=== PATIENT | male | born 1960 | race Caucasian/White ===

== ENCOUNTER → 2020-11-07 08:52 | Outpatient (BNVA) | payer BC, SELFPAY | PROVIDERS: PCP Internal Medicine; Referring Provider Internal Medicine; Visit Provider Urology | DX: Z76.89 Persons encountering health services in other specified circumstances (principal) ==

== ENCOUNTER → 2021-11-30 13:07 | Outpatient (BNVA) | payer BC, SELFPAY | PROVIDERS: PCP Internal Medicine; Visit Provider Urology ==

== ENCOUNTER → 2022-11-29 14:26 | Outpatient (BNVA) | payer BC, SELFPAY | PROVIDERS: PCP Internal Medicine; Visit Provider Urology | DX: N20.0 Calculus of kidney (principal); N32.0 Bladder-neck obstruction | CPT/HCPCS: 51798 ==

== ENCOUNTER 2024-03-12 09:01 | Outpatient (AMB) | payer BC, SELFPAY ==
--- NOTE | 2024-03-12 09:11 | MHC.OFFVIS ---
Intake Visit Reasons: 1Y PSA(set)Confirmed Intake Note: Patient is Present for Follow Up Urology Medication: Terazosin, Oxybutynin Antibiotic Allergies: Amoxicillin Blood Thinners: None PVR: 0 Allergies amoxicillin [Augmentin] Allergy (Unknown, Verified 11/29/22 15:27) Unknown clavulanic acid [Augmentin] Allergy (Unknown, Verified 11/29/22 15:27) Unknown Medication List - Last Reconciled 03/12/24 by Shaan Mei MD levothyroxine 75 mcg PO DAILY metformin 500 mg PO DAILY oxybutynin chloride ER 10 mg PO DAILY 90 days terazosin 5 mg PO DAILY 90 days HPI Comments Details: Juan is a pleasant male. He is a patient of Dr. Banks. He seen for the following urologic conditions - lower urinary tract symptoms - nephrolithiasis Yearly follow-up PVR 0 cc Effective emptying Continue good response to combination oxybutynin for bladder urge and terazosin for bladder emptying Has lost 100 lb and significantly increased diabetic control Lower Urinary Tract Symptoms: Happy with current medications Combination therapy oxybutynin terazosin Has enough medication Current visit is for further evaluation of, lower urinary tract symptoms, predominate irritative symptoms. Current treatment includes medication, alpha meg, anti-muscarinic, oxybuytinin 10mg. Prostate Symptom Score Mild (0-8), Bother 2. Symptoms include frequency, straining, nocturia (>2), and are stable. Prior Prostate Score mild. PSA 10/03 0.2 - 09/08 T 698 [facility] 75 08/10 0.2. Prostate volume < 30 gm. Associated conditions CAD No CVA No diabetes Yes Testing at next visit will include Prostate Symptom Score, uroflow, bladder scan. Treatment plan Oxybutynin 10 mg ER, terazosin 5 mg . Nephrolithiasis/Urolithiasis: Here for 12 month follow-up Ultrasound discussed Has cyst on right kidney with question of small stone They are here for further evaluation of nephrolithiasis. Associated symptoms include Fever No Nausea No Chills No Hematuria No The patient previously had kidney stones whose composition w unknown. Prior treatment(s) include observation. Prior imaging includes 09/11 , a renal ultrasound, , bilaterally, no evidence of hydronephrosis, showing no evidence of stones. - 09/12 renal ultrasound. Cysts on right side, question of small stones - 11/21 renal ultrasound bilateral cysts but no stones Review of Systems Const Denies chills and Denies fever(s) Card Reports no additional complaints and Denies syncope Resp Denies cough GI Denies abdominal pain and Denies heartburn Reports as per HPI and Denies change in libido Neuro Denies syncope Psych Denies change in libido Endo Denies change in libido Physical Exam Const General: cooperative, healthy appearing, comfortable and no acute distress Orientation/consciousness: patient oriented x3 HEENT Face and sinus: Yes normal facial exam Mouth: moist mucous membranes Neck Neck: Yes normal visual inspection, Yes full ROM and Yes trachea midline Chest Chest palpation & inspection: normal inspection of the chest Resp Effort & Inspection: normal respiratory effort, able to speak in complete sentences and no respiratory distress GI Inspection: Yes normal to inspection Back/Spine/Pelvis Cervical Spine: normal cervical lordosis Thoracic/Lumbar Spine: thoracic and lumbar spine normal to inspection Skin General skin exam: no rashes or lesions noted Neuro General: patient oriented x3, gait normal, tone normal and moves all extremities Extrem General: Yes normal to inspection and Yes capillary refill normal Office Procedures Post Void Residual Post Residual Void Post Void Residual (PVR): 0 [id number] Void Residual by ultrasound Assessment & Plan Assessment & Plan (1) Bladder outlet obstruction: Code(s): N32.0 - Bladder-neck obstruction Category: Medical (2) Nocturia associated with benign prostatic hyperplasia: Code(s): N40.1 - Benign prostatic hyperplasia with lower urinary tract symptoms; R35.1 - Nocturia Category: Medical Plan Twelve month follow-up PSA and PVR Orders: Orders AMB Post Void Residual by ultrasound Today N40.1 - Benign prostatic hyperplasia with lower urinary tract symptoms, R35.1 - Nocturia Prostate Specific Antigen 364 Days N32.0 - Bladder-neck obstruction Medications: Refilled terazosin 5 mg PO DAILY 90 days 90 caps 3RF N32.0 - Bladder-neck obstruction oxybutynin chloride ER 10 mg PO DAILY 90 days 90 tabs 3RF N32.0 - Bladder-neck obstruction Patient Instructions: Imaging studies, laboratory and physical exam results were discussed and reviewed in detail. No major barriers to patient understanding were identified. An opportunity to ask questions regarding the treatment plan was provided. All questions were answered. The patient expressed understanding and agreement with the above treatment plan. The patient is aware they should contact our office by phone for worsening of their current condition or the appearance of new urologic symptoms. Compliance is encouraged with any medications and followup testing that is ordered. It is a privilege to participate in the urologic care of your patient. If you have any questions or concerns regarding treatment for the above conditions, or other urologic issues, please do not hesitate to contact me. The office telephone contact is [phone]. This note is constructed using voice recognition software. While every effort has been made to ensure accuracy content publisher errors may have been included. Yours sincerely, Dr Shaan Mei MD, [facility] - Urology Providers of Expert, Compassionate Care for the Genitourinary System
== END 2024-03-12 09:34 | disposition home or self-care (01) ==
PROVIDERS: PCP Internal Medicine; Visit Provider Urology
DX: N32.0 Bladder-neck obstruction (principal); N40.1 Benign prostatic hyperplasia with lower urinary tract symptoms; R35.1 Nocturia
CPT/HCPCS: 99213

== ENCOUNTER → 2024-03-12 09:01 | Outpatient (BNVA) | payer BC, SELFPAY | PROVIDERS: PCP Internal Medicine; Visit Provider Urology | DX: N40.1 Benign prostatic hyperplasia with lower urinary tract symptoms (principal); R35.1 Nocturia; N32.0 Bladder-neck obstruction; Z79.899 Other long term (current) drug therapy | CPT/HCPCS: 51798 ==

== ENCOUNTER 2025-02-24 07:58 | Outpatient (REF) | payer MEDICARE, OTHER, SELFPAY ==
--- OUTSIDE RECORDS SUMMARY | 2025-02-24 08:02 | XMS_ITS ---
Author Organization [facility] Address [address] [place] [address] Care Team Providers Care New Client Banking Services Clerk Name Role Phone LONI BREAUX [phone] REASON FOR VISIT refill MEDICATIONS Medication SIG (Take, Route, Frequency, Duration) Notes Start Date End Date Status Lancets 30G - one lancet for pen i njector in vitro twice daily for DX E 11.9 for 90 days 02/08/2025 Active Encounters Encounter Location Date Provider Diagnosis [facility] [address] [place] [address] 02/08/2025 TOMMYCECI BREAUX PLAN OF TREATMENT Medication Medication Name Sig Start Date Stop Date Notes Lancets 30G - one lancet for pen i njector in vitro twice daily for DX E 11.9 for 90 days 02/08/2025 Next Appt Details Provider Name:GONZALEZ LEWIS, 04/04/2025 08:30:00 AM, [address] [place], [address], Progress Notes * Juan IZAGUIRREDOB:1960 (64 yo M)Acc No.[id number]:02/08/2025 Patient:??Juan IZAGUIRRE :1960?Age:64 Y?Sex:Darcy bose Address:[address] [place] [address] [place] [address] * Refills?? Start Lancets 30G Miscellaneous, -, 200 Each, one lancet for pen injector in vitro twice daily for DX E 11.9, 90 days, Refills=1 * true * Date:??
--- OUTSIDE RECORDS SUMMARY | 2025-02-24 08:02 | XMS_ITS ---
Author Organization [facility] Address [address] [place] [address] Care Team Providers Care Loading Unit Operator Seating Name Role Phone LONI BREAUX Unavailable [phone] LEWISBARRYY Unavailable [phone] REASON FOR VISIT glucose testing MEDICATIONS Medication SIG (Take, Route, Fr equency, Duration) Notes Start Date End Date Status Contour Test - once In Vitro dx e11 .6 contour next 1 twice a day for 90 days 08/28/2021 Active Encounters Encounter Location Date Provider Diagnosis [facility] [address] [place] [address] 01/25/2025 GONZALEZ LEWIS PLAN OF TREATMENT Medication Medication Name Sig Start Date Stop Date Notes Contour Test - once In Vitro dx e11 .6 contour next 1 twice a day for 90 days 08/28/2021 Next Appt Details Provider Name:GONZALEZ LEWIS, 04/04/2025 08:30:00 AM, [address] [place], [address], Progress Notes * Juan IZAGUIRREDOB:1960 (64 yo M)Acc No.[id number]:01/25/2025 Patient:??Juan IZAGUIRRE :1960?Age:64 Y?Sex:Darcy bose Address:[address] [place] [address] [place] [address] * Refills?? Refill Contour Test Strip, -, In Vitro dx e11.6 contour next 1, 180, once, twice a day, 90 days, Refills=0 * true * Date:??
--- OUTSIDE RECORDS SUMMARY | 2025-02-24 08:02 | XMS_ITS | Clinical Summary ---
Author Organization [facility] Address [address] [place] [address] Care Team Providers Care Endoscopy Support Specialist Name Role Phone Tyshawn Banks MD Primary Care Provider [phone] Surgical History Surgery Date Site/Laterality Comments HIP ARTHROPLASTY 03/2017 Left PROCEDURE: HISTORICAL HIP REPLACEMENT; COMMENT: Dr. Joshi ANKLE SURGERY Right PROCEDURE: HISTORICAL ANKLE SURGERY; COMMENT: due fx had some bone fragments removed - age 16 TONSILLECTOMY PROCEDURE: HISTORICAL TONSILLECTOMY Medical History Medical History Date Comments Benign enlargement of prostate 11/20/2016 D X:Benign enlargement of prostate; COMMENT: urology Dr. Nj Diabetes mellitus type 2, uncomplicated 05/22/2017 DX:Diabetes mellitus type 2, uncomplicated (HCC) Fatty liver 05/22/2017 DX:Fatty liver History of total hip replacement 05/22/2017 DX:History of total hip replacement Hypertension 05/22/2017 DX:Hypertension Hypothyroidism 05/22/2017 DX:Hypothyroidis m Insomnia 11/03/2015 DX:Insomnia Internal hemorrhoids 02/23/2013 DX:Internal hemorrhoids History of nephrolithiasis DX:Hi story of nephrolithiasis; COMMENT: Urology Dr. Nj Family History Medical History Relation Name Comments No Known Problems Father Other cancer Mother Relation Name Status Comments Father Mother Social History Tobacco Use Types Packs/Day Years Used Date Smoking Tobacco: Never Smokeless Tobacco: Never Alcohol Use Standard Drinks/Week Comments Yes 0 (1 standard drink = 0.6 oz pur e alcohol) Sex and Gender Information Value Date Recorded Sex Assigned at Not on file Legal Sex Male 10:17 PM EST Gender Identity Not on file Sexual Orientation Not on file Obstetrics History Plan of Treatment Health Maintenance Due Date Last Done Comments Diabetes: Annual GFR (Glomer ular Filtration Rate) 1959 Diabetes: Annual Foot Exam 1969 Diabetes: Annual Retina Eye Exam 1969 DTaP,Tdap,and Td Vaccines (1 - Tdap) 1978 Hepatitis A Vaccines (1 of 2 - Risk 2-dose series) 1978 Pneumococcal Vaccine: 50+ Ye ars (1 of 1 - PCV) 2009 Zoster Vaccines (1 of 2) 2009 Hepatitis B Vaccines (1 of 3 - Risk 3-dose series) 2019 RSV Immunization Adult Patie nts (1 - Risk 60-74 years 1-dose series) 2019 Abdominal Aortic Aneurysm (A AA) Screen 10/26/2022 Cholesterol Screening (Lipid Panel) 10/26/2022 Colorectal Cancer Screening: Colonoscopy 10/26/2022 Depression Screening 10/26/2022 Hepatitis C Screening 10/26/2022 Social Influencers of Health Screening 10/26/2022 Diabetes: Annual Urine Albumin-Creatinine Ratio (uACR) 11/09/2022 Diabetes: Blood Sugar Contro l Test (HGBA1C) 11/09/2022 Hypertension/CHF/CAD Annual BMP Blood Test 11/09/2022 COVID-19 Vaccine ( - 2023-2 5 season) 2024 Influenza Vaccine (#1) 2024 Falls Risk Assessment 2024 HIB Vaccines Aged Out No longer eligi ble based on patient's age to complete this topic HPV Vaccines Aged Out No longer eligi ble based on patient's age to complete this topic IPV Vaccines Aged Out No longer eligi ble based on patient's age to complete this topic MMR Vaccines Aged Out No longer eligi ble based on patient's age to complete this topic Meningococcal ACWY Vaccine Aged Out N o longer eligible based on patient's age to complete this topic Meningococcal B Vacine Aged Out No lo nger eligible based on patient's age to complete this topic Pneumococcal Vaccine: Pediat rics (0 to 5 Years) and At-Risk Patients (6 to 64 Years) Aged Out No longer eligible b ased on patient's age to complete this topic RSV Immunization Patients Un maria c 20 months Aged Out No longer eligible b ased on patient's age to complete this topic Varicella Vaccines Aged Out No longer eligible based on patient's age to complete this topic Care Teams Endoscopy Support Specialist Relationship Specialty Start Date End Date Tyshawn Banks MD [facility] - General 11/21/22
--- OUTSIDE RECORDS SUMMARY | 2025-02-24 08:02 | XMS_ITS ---
Author Organization [facility] Address [address] [place] [address] Care Team Providers Care Manager Clinical Applications Name Role Phone LONI BREAUX Unavailable [phone] LEWIS, GONZALEZ Unavailable [phone] REASON FOR VISIT Wrong pharmacy MEDICATIONS Medication SIG (Take, Route, Fr equency, Duration) Notes Start Date End Date Status Contour Test - once In Vitro dx e11 .6 contour next 1 twice a day for 90 days 08/28/2021 Active Encounters Encounter Location Date Provider Diagnosis [address] [place] [phone] 01/25/2025 GONZALEZ LEWIS PLAN OF TREATMENT Medication Medication Name Sig Start Date Stop Date Notes Contour Test - once In Vitro dx e11 .6 contour next 1 twice a day for 90 days 08/28/2021 Next Appt Details Provider Name:GONZALEZ LEWIS, 04/04/2025 08:30:00 AM, [address] [place], [address], Progress Notes * Juan IZAGUIRREDOB:1960 (64 yo M)Acc No.[id number]:01/25/2025 Patient:??Juan IZAGUIRRE :1960?Age:64 Y?Sex:Darcy bose Address:[address] [place] [address] [place] [address] * Refills?? Refill Contour Test Strip, -, In Vitro dx e11.6 contour next 1, 180, once, twice a day, 90 days, Refills=0 * true * Date:??
[2025-02-24 09:48] LABS: Prostate Specific Antigen 0.65 ng/mL (<0.05-4.0)
== END 2025-02-24 07:59 | disposition home or self-care (01) ==
LOC: HO.10HDL 07:58
PROVIDERS: Visit Provider Urology
DX: N32.0 Bladder-neck obstruction (principal); Z12.5 Encounter for screening for malignant neoplasm of prostate
CPT/HCPCS: 36415; 84153

== ENCOUNTER 2025-03-11 09:11 | Outpatient (AMB) | payer MEDICARE, OTHER, SELFPAY ==
--- NOTE | 2025-03-11 09:21 | MHC.OFFVIS ---
Intake Visit Reasons: 1y/PSA/PVR Intake Note: Pt presents to the office today for a 1 year follow up/PSA/PVR PVR:0ml Allergies amoxicillin [Augmentin] Allergy (Unknown, Verified 03/11/25 09:28) Unknown clavulanic acid [Augmentin] Allergy (Unknown, Verified 03/11/25 09:28) Unknown HPI Comments Details: Juan is a pleasant male. He is a patient of Dr. Banks. He seen for the following urologic conditions - lower urinary tract symptoms - nephrolithiasis Yearly follow-up Effective emptying with PVR 0, PSA 0.65 Continue good response to combination oxybutynin for bladder urge and terazosin for bladder emptying - refills provided Has lost 100 lb and significantly increased diabetic control Lower Urinary Tract Symptoms: Happy with current medications Combination therapy oxybutynin terazosin Has enough medication Current visit is for further evaluation of, lower urinary tract symptoms, predominate irritative symptoms. Current treatment includes medication, alpha meg, anti-muscarinic, oxybuytinin 10mg. Prostate Symptom Score Mild (0-8), Bother 2. Symptoms include frequency, straining, nocturia (>2), and are stable. Prior Prostate Score mild. PSA 10/03 0.2 - 09/08 T 698 [facility] 75 08/10 0.2, 03/18 0.65 Prostate volume < 30 gm. Associated conditions CAD No CVA No diabetes Yes Testing at next visit will include Prostate Symptom Score, uroflow, bladder scan. Treatment plan Oxybutynin 10 mg ER, terazosin 5 mg . Nephrolithiasis/Urolithiasis: Here for 12 month follow-up Ultrasound discussed Has cyst on right kidney with question of small stone They are here for further evaluation of nephrolithiasis. Associated symptoms include Fever No Nausea No Chills No Hematuria No The patient previously had kidney stones whose composition w unknown. Prior treatment(s) include observation. Prior imaging includes 09/11 , a renal ultrasound, , bilaterally, no evidence of hydronephrosis, showing no evidence of stones. - 09/12 renal ultrasound. Cysts on right side, question of small stones - 10/14 renal ultrasound bilateral cysts but no stones Review of Systems Const Denies chills and Denies fever(s) Card Reports no additional complaints and Denies syncope Resp Denies cough GI Denies abdominal pain and Denies heartburn Reports as per HPI and Denies change in libido Neuro Denies syncope Psych Denies change in libido Endo Denies change in libido Physical Exam Const General: cooperative, healthy appearing, comfortable and no acute distress Orientation/consciousness: patient oriented x3 HEENT Face and sinus: Yes normal facial exam Mouth: moist mucous membranes Neck Neck: Yes normal visual inspection, Yes full ROM and Yes trachea midline Chest Chest palpation & inspection: normal inspection of the chest Resp Effort & Inspection: normal respiratory effort, able to speak in complete sentences and no respiratory distress GI Inspection: Yes normal to inspection Back/Spine/Pelvis Cervical Spine: normal cervical lordosis Thoracic/Lumbar Spine: thoracic and lumbar spine normal to inspection Skin General skin exam: no rashes or lesions noted Neuro General: patient oriented x3, gait normal, tone normal and moves all extremities Extrem General: Yes normal to inspection and Yes capillary refill normal Office Procedures Post Void Residual Post Residual Void Post Void Residual (PVR): 0 [id number] Void Residual by ultrasound Assessment & Plan Assessment & Plan (1) Diabetes: Code(s): E11.9 - Type 2 diabetes mellitus without complications Category: Medical (2) Nocturia associated with benign prostatic hyperplasia: Code(s): N40.1 - Benign prostatic hyperplasia with lower urinary tract symptoms; R35.1 - Nocturia Category: Medical (3) Bladder outlet obstruction: Code(s): N32.0 - Bladder-neck obstruction Category: Medical Plan Twelve month follow-up Orders: Orders AMB Post Void Residual by ultrasound Today N40.1 - Benign prostatic hyperplasia with lower urinary tract symptoms, R35.1 - Nocturia Testosterone, Total 12 Months E11.9 - Type 2 diabetes mellitus without complications Patient Instructions: This note is constructed using voice recognition software. While every effort has been made to ensure accuracy organic section technical lead errors may have been included. Imaging studies, laboratory and physical exam results were discussed and reviewed in detail. No major barriers to patient understanding were identified. An opportunity to ask questions regarding the treatment plan was provided. All questions were answered. The patient expressed understanding and agreement with the above treatment plan. The patient is aware they should contact our office by phone for worsening of their current condition or the appearance of new urologic symptoms. Compliance is encouraged with any medications and followup testing that is ordered. It is a privilege to participate in the urologic care of your patient. If you have any questions or concerns regarding treatment for the above conditions, or other urologic issues, please do not hesitate to contact me. The office telephone contact is [phone]. Sincerely, Dr Shaan Mei MD, [facility] - Urology Compassionate Specialist Care for the Genitourinary System Coding Level of Care Code Est Pt Level 4 (95771) Complex EM visit Add On G2211 Diagnoses Diabetes E11.9 Nocturia associated with benign prostatic hyperplasia N40.1; R35.1 Bladder outlet obstruction N32.0 CPT Codes Post Residual Void - PVR CPT Code: 62984-Ahto Void Residual by ultrasound ([id number])
--- OUTSIDE RECORDS SUMMARY | 2025-03-11 09:38 | XMS_ITS ---
Author Organization [facility] Address [address] [place] [address] Care Team Providers Care Apartment Community Manager Name Role Phone LONI BREAUX [phone] REASON FOR VISIT refill MEDICATIONS Medication SIG (Take, Route, Frequency, Duration) Notes Start Date End Date Status Lancets 30G - one lancet for pen i njector in vitro twice daily for DX E 11.9 for 90 days 02/08/2025 Active Encounters Encounter Location Date Provider Diagnosis [facility] [address] [place] [address] 02/08/2025 TOMMYCECI BREAUX PLAN OF TREATMENT Medication Medication Name Sig Start Date Stop Date Notes Lancets 30G - one lancet for pen i njector in vitro twice daily for DX E 11.9 for 90 days 02/08/2025 Next Appt Details Provider Name:GONZALEZ LEWIS, 04/04/2025 08:30:00 AM, [address] [place], [address], Progress Notes * Juan IZAGUIRREDOB:1960 (64 yo M)Acc No.[id number]:02/08/2025 Patient:??Juan IZAGUIRRE :1960?Age:64 Y?Sex:Darcy bose Address:[address] [place] [address] [place] [address] * Refills?? Start Lancets 30G Miscellaneous, -, 200 Each, one lancet for pen injector in vitro twice daily for DX E 11.9, 90 days, Refills=1 * true * Date:??
--- OUTSIDE RECORDS SUMMARY | 2025-03-11 09:38 | XMS_ITS ---
Author Organization [facility] Address [address] [place] [address] Care Team Providers Care [employer] Superintendent [employer] Name Role Phone LONI BREAUX Unavailable [phone] LEWIS, GONZALEZ Unavailable [phone] REASON FOR VISIT Wrong pharmacy MEDICATIONS Medication SIG (Take, Route, Fr equency, Duration) Notes Start Date End Date Status Contour Test - once In Vitro dx e11 .6 contour next 1 twice a day for 90 days 08/28/2021 Active Encounters Encounter Location Date Provider Diagnosis [address] [place] [address] 01/25/2025 GONZALEZ LEWIS PLAN OF TREATMENT Medication Medication Name Sig Start Date Stop Date Notes Contour Test - once In Vitro dx e11 .6 contour next 1 twice a day for 90 days 08/28/2021 Next Appt Details Provider Name:GONZALEZ LEWIS, 04/04/2025 08:30:00 AM, [address] [place], [address], Progress Notes * Juan IZAGUIRREDOB:1960 (64 yo M)Acc No.[id number]:01/25/2025 Patient:??Juan IZAGUIRRE :1960?Age:64 Y?Sex:Darcy bose Address:[address] [place] [address] [place] [address] * Refills?? Refill Contour Test Strip, -, In Vitro dx e11.6 contour next 1, 180, once, twice a day, 90 days, Refills=0 * true * Date:??
--- OUTSIDE RECORDS SUMMARY | 2025-03-11 09:38 | XMS_ITS | Clinical Summary ---
Author Organization [facility] Address [address] [place] [address] Care Team Providers Care Hog Killer Name Role Phone Tyshawn Banks MD Primary Care Provider [phone] Surgical History Surgery Date Site/Laterality Comments HIP [...] Dr. Nj Diabetes mellitus type 2, uncomplicated (CMS/HCC V24, CMS/HCC V28) 05/22/2017 DX:Diabetes mellitus type 2, uncomplicated (HCC) Fatty liver 05/22/2017 DX:Fatty liver History of total hip replacement 05/22/2017 DX:History of total hip replacement Hypertension 05/22/2017 DX:Hypertension Hypothyroidism 05/22/2017 DX:Hypothyroidis m Insomnia 11/03/2015 DX:Insomnia Internal hemorrhoids 02/23/2013 DX:Internal hemorrhoids History of nephrolithiasis DX:Mo story of nephrolithiasis; COMMENT: Urology Dr. Nj [...] Vaccine ( - 2023-2 5 season) 2024 Falls Risk Assessment 2024 Influenza Vaccine (Season Ended) 2025 HIB Vaccines Aged Out No longer eligi [...] age to complete this topic Meningococcal B Vaccine Aged Out No l onger eligible based on patient's age to complete [...] age to complete this topic Care Teams Hog Killer Relationship Specialty Start Date End Date Tyshawn Banks MD PCP - General 11/21/22
--- OUTSIDE RECORDS SUMMARY | 2025-03-11 09:39 | XMS_ITS ---
Author Organization [facility] Address [address] [place] [address] Care Team Providers Care Faculty Head Name Role Phone LONI BREAUX Unavailable [phone] LEWISBARRYY Unavailable [phone] REASON FOR VISIT glucose testing MEDICATIONS Medication SIG (Take, Route, Fr equency, Duration) Notes Start Date End Date Status Contour Test - once In Vitro dx e11 .6 contour next 1 twice a day for 90 days 08/28/2021 Active Encounters Encounter Location Date Provider Diagnosis [facility] [address] [place] [address] 01/25/2025 GONZALEZ LEWIS PLAN OF TREATMENT Medication Medication Name Sig Start Date Stop Date Notes Contour Test - once In Vitro dx e11 .6 contour next 1 twice a day for 90 days 08/28/2021 Next Appt Details Provider Name:GONZALEZ LEWIS, 04/04/2025 08:30:00 AM, [address] [place], [address], Progress Notes * Juan IZAGUIRREDOB:1960 (64 yo M)Acc No.[id number]:01/25/2025 Patient:??Juan IZAGUIRRE :1960?Age:64 Y?Sex:Darcy bose Address:[address] [place] [address] [place] [address] * Refills?? Refill Contour Test Strip, -, In Vitro dx e11.6 contour next 1, 180, once, twice a day, 90 days, Refills=0 * true * Date:??
--- OUTSIDE RECORDS SUMMARY | 2025-03-11 09:39 | XMS_ITS | Patient Health Record ---
Author Organization [facility] Address [address] [place] [address] Care Team Providers Care Hand Tube Bender Name Role Phone LONI BANKS Unavailable [phone] GONZALEZ LEWIS Unavailable [phone] ALLERGIES Allergen (clinical drug ingredient) Drug/Non Drug Allergy documented on EMR Reaction Allergy Type Onset Date Status amoxicillin Amoxicillin rash Drug Allergy Act kimberley RESULTS Component Value Reference Range Notes CBC Reviewed date:03/18/2024 03:41:29 PM Interpretation: Performing Lab: Notes/Report: Note Original Ordering Provider: PAPA VINCENT MD [place], a member of [address] [address] Wash Helper - Shaye Damian MD WBC 5.4 4.8-10.8 x10-3/uL RBC 5.0 4.5-5.5 x10-6/uL HEMOGLOBIN 15.4 13.5-17.5 g/dL HEMATOCRIT 45.4 42-54 % MCV 90.3 79-98 fL MCH 30.6 27-32 pg MCHC 33.9 32-37 g/dL RDW 12.3 11-15 % PLT COUNT 195 130-400 x10-3/uL MEAN PLATELET VOLUME 9.7 7-11 fL NRBC % AUTO 0.0 <1 % NRBC # AUTO 0.00 <0.1 x10-3/uL Note Original Ordering Provider: PAPA VINCENT MD [place], a member of [address] [address] Wash [employer]per - Shaye Damian MD ELECTROLYTES Reviewed date:03/18/2024 03:41:29 PM Interpretation: Performing Lab: Notes/Report: SODIUM 140 135-145 mEq/L POTASSIUM 4.1 3.5-5.5 mmol/L CHLORIDE 103 96-110 mmol/L CO2 30 21-32 mmol/L ANION GAP 7 3-11 CREATININE WITH GFR Reviewed date:03/18/2024 03:41:29 PM Interpretation: Performing Lab: Notes/Report: Note Original Orderi ng Provider: PPAA VINCENT MD CREAT 0.94 0.7-1.3 mg/dL GLOMERULAR FILTRATION RATE 91 >60 This eGFR result was calculated using the CKD-EPI 2020 Creatinine Equation Hemoglobin [id number] Reviewed date:12/29/2024 09:03:02 AM Interpretation: Performing Lab:[facility] [place], [address] [place] [address], Phone - [phone], Director - Abady Notes/Report: Hemoglobin A1c 7.2 4.8-5.6 % . Prediabetes: 5.7 - 6.4 Diabetes: >6.4 Glycemic control for adults with diabetes: <7.0 Urinalysis, Complete-[id number] Reviewed date:12/29/2024 09:03:06 AM Interpretation: Performing Lab:[facility], [address] [place] [address], Phone - [phone], Director - Abady Notes/Report: Specific [place] >=1.030 1.005-1.030 pH 5.5 5.0-7.5 Urine-Color Yellow Yellow Appearance Clear Clear WBC Esterase Negative Negative Protein Negative Negative/Trace Glucose 3+ Negative Ketones 1+ Negative Occult Blood Negative Negative Bilirubin Negative Negative Urobilinogen,Semi-Qn 0.2 0.2-1.0 mg/dL Nitrite, Urine Negative Negative Microscopic Examination Micr oscopic follows if indicated. Microscopic Examination See below: Micr oscopic was indicated and was performed. WBC 0-5 0 - 5 /hpf RBC 0-2 0 - 2 /hpf Epithelial Cells (non renal) None seen 0 - 10 /hpf Epithelial Cells (renal) Casts None seen None seen /lpf Cast Type Crystals Crystal Type Mucus Threads Bacteria None seen None seen/Few Yeast Trichomonas Comment TSH-[id number] Reviewed date:12/29/2024 09:02:54 AM Interpretation: Performing Lab:[facility] [place], [address] [place] [address], [place], Phone - [phone], Director - Abady Notes/Report: TSH 5.760 0.450-4.500 uIU/mL CBC With Differential/Platel et-[id number] Reviewed date:12/29/2024 08:57:24 AM Interpretation: Performing Lab:[facility], [address] [place] [address], Phone - [phone], Director - MDTriciay Notes/Report: WBC 5.0 3.4-10.8 x10E3/uL RBC 5.20 4.14-5.80 x10E6/uL Hemoglobin 15.7 13.0-17.7 g/dL Hematocrit 48.3 37.5-51.0 % MCV 93 79-97 fL MCH 30.2 26.6-33.0 pg MCHC 32.5 31.5-35.7 g/dL RDW 12.0 11.6-15.4 % Platelets 192 150-450 x10E3/uL Neutrophils 57 Not Estab. % Lymphs 28 Not Estab. % Monocytes 10 Not Estab. % Eos 4 Not Estab. % Basos 1 Not Estab. % Immature Cells Neutrophils (Absolute) 2.9 1.4-7.0 x10E3/uL Lymphs (Absolute) 1.4 0.7-3.1 x10E3/uL Monocytes(Absolute) 0.5 0.1-0.9 x10E3/uL Eos (Absolute) 0.2 0.0-0.4 x10E3/uL Baso (Absolute) 0.0 0.0-0.2 x10E3/uL Immature Granulocytes 0 Not Estab. % Immature Grans (Abs) 0.0 0.0-0.1 x10E3/uL NRBC Hematology Comments: Lipid Panel-[id number] Reviewed date:12/29/2024 09:03:06 AM Interpretation: Performing Lab:[facility], [facility], Phone - [phone], Director - MDJodry Notes/Report: Cholesterol, Total 79 100-199 mg/dL Triglycerides 85 0-149 mg/dL HDL Cholesterol 46 >39 mg/dL VLDL Cholesterol Dustin 17 5-40 mg/dL LDL Chol Calc ([facility]) 16 0-99 mg/dL LDL Calc Comment: Comp. Metabolic Panel ([id number] Reviewed date:12/29/2024 09:03:06 AM Interpretation: Performing Lab:[facility], [address] [address], Phone - [phone], Director - MDJodry Notes/Report: Glucose 146 70-99 mg/dL BUN 26 8-27 mg/dL Creatinine 0.89 0.76-1.27 mg/dL eGFR 95 >59 mL/min/1.73 BUN/Creatinine Ratio 29 10-24 Sodium 138 134-144 mmol/L Potassium 4.6 3.5-5.2 mmol/L Chloride 99 96-106 mmol/L Carbon Dioxide, Total 22 20-29 mmol/L Calcium 9.5 8.6-10.2 mg/dL Protein, Total 7.4 6.0-8.5 g/dL Albumin 4.7 3.9-4.9 g/dL Globulin, Total 2.7 1.5-4.5 g/dL Bilirubin, Total 1.9 0.0-1.2 mg/dL Alkaline Phosphatase 76 44-121 IU/L AST (SGOT) 38 0-40 IU/L ALT (SGPT) 38 0-44 IU/L REASON FOR REFERRAL Reason Evaluate & Treat Diagnosis 1 Encounter for screen ing for malignant neoplasm of skin (Z12.83) Referral Organization [facility] Referring Provider First Name GONZALEZ Referring Provider Last Name JOSHUA Referring Provider Speciality Internal M edicine Referred Provider Specialty Dermatology General Notes Tanna Pelayo 2024 09:59:40 AM > [place] , , Referral Priority Routine MEDICATIONS Medication SIG (Take, Route, Frequency, Duration) Notes Start Date End Date Status Lisinopril-hydroCHLOROthiazi de 20-12.5 MG TAKE 1 TABLET BY MOUTH ONCE DAILY for 90 days Active Atorvastatin Calcium 20 MG 1 tablet Oral ly Once a day for 90 days Active Januvia 100 MG 1 tablet Orally Once a day for 90 days Active OneTouch Ultra - as directed In Vitro e11.9 once daily for 90 days 07/19/2021 Active Levothyroxine Sodium 100 MCG TAKE 1 TABL ET BY MOUTH IN THE MORNING ON AN EMPTY STOMACH for 90 Active oxyBUTYnin Chloride ER 10 MG 1 tablet Or ally Once a day Active Jardiance 25 MG TAKE 1 TABLET BY JAXSON TH ONCE DAILY for 90 Active Contour Test - once In Vitro dx e11 .6 contour next 1 twice a day for 90 days 08/28/2021 Active Terazosin HCl 5 MG 1 capsule at bedtime Orally Once a day Active metFORMIN HCl 1000 MG TAKE 1 TABLET BY M OUTH TWICE DAILY for 90 Active Lancets 30G - one lancet for pen injector in vitro twice daily for DX E 11.9 for 90 days 02/08/2025 Active IMMUNIZATIONS Vaccine Route Administration Date Status Comme nts influenza IM Intramuscular 10/11/2021 Administered influenza Unknown 08/25/2023 Administered SHINGRIX IM Intramuscular 10/11/2021 Administered SQ R t ricep SHINGRIX SC Subcutaneous 01/21/2022 Administered SOCIAL HISTORY Tobacco Use: Social History Observation Description Date Details (start date - stop date) Never Smoker NA - NA Sex Assigned At : Social History Observation Description Sex Assigned At Unknown Tobacco Use/Smoking Question Answer Notes Are you a nonsmoker Section Notes: retired in March [address] [employer] retired in March [address] [employer] retired in March [address] [employer] retired in March [address] [employer] retired in March [address] [employer] PROBLEMS Problem Type ICD Code Onset Dates Problem Status W/U Status Risk SNOMED Code Notes Problem Type 2 diabetes mellitus with hyperglycemia (E11.65) Active confirmed Hyperglycemia d ue to type 2 diabetes mellitus (719508594387946) Problem Type 2 diabetes mellitus with unspecified complications (E11.8) Active confirmed 09240665 Problem Encounter for general adult medical examination without abnormal findings (Z00.00) Active confirmed 356674684 Problem Encounter for screening for malignant neoplasm of skin (Z12.83) Active confirmed 949408938 Problem Encounter for screening for diabetes mellitus (Z13.1) Active confirmed 101883469 Problem Screen for colon cancer (Z12.11) Active confirmed Screening fo r malignant neoplasm of colon (690293968) Problem Hypothyroidism, unspecified type (E03.9) Active confirmed 06499263 Problem Arthritis (M19.90) Active confirmed Arthritis (2726329) Problem Hypothyroidism (acquired) (E03.9) Active confirmed Hypothyroidism (58762437) Problem Hypertension, essential (I10) Active confirmed Essential hypertension (26069248) Problem Hyperlipidemia (E78.5) Active confirmed Hyperlipidemia (92268972) Problem BPH without urinary obstruction (N40.0) Active confirmed Benign prostati c hypertrophy without outflow obstruction (626942388) Problem High bilirubin (R17) Active confirmed 63326448 Problem Type 2 diabetes mellitus without complication, unspecified whether tank terminal gauger insulin use (E11.9) Active confirmed 586873979 Problem Hypertension, unspecified type (I10) Active confirmed 67785174 Problem Hyperlipidemia, unspecified hyperlipidemia type (E78.5) Active confirmed 74096268 Problem Benign prostatic hyperplasia without lower urinary tract symptoms (N40.0) Active confirmed 817152445 VITAL SIGNS Heart Rate 84 /min 01/03/2025 Oximetry 98 % 01/03/2025 Blood pressure diastolic 80 mm Hg 01/03/2025 Height 71 in 01/03/2025 Blood pressure systolic 138 mm Hg 01/03/2025 Weight 237.8 lbs 01/03/2025 BMI 33.16 kg/m2 01/03/2025 Encounters Encounter Location Date Provider Diagnosis [facility] [address] [place] [address] 04/26/2024 GONZALEZ LWEIS Type 2 diabetes antelmo itus with unspecified complications E11.8 ; Hypothyroidism, unspecified type E03.9 ; Hyperlipidemia, unspecified hyperlipidemia type E78.5 ; Hypertension, unspecified type I10 ; Benign prostatic hyperplasia without lower urinary tract symptoms N40.0 and Elevated liver enzymes R74.8 [facility] [address] [place] [address] 01/03/2025 GONZALEZ LEWIS Type 2 diabetes antelmo itus with unspecified complications E11.8 ; Wellness examination Z00.00 ; Hypothyroidism, unspecified type E03.9 ; Hyperlipidemia, unspecified hyperlipidemia type E78.5 ; Hypertension, unspecified type I10 ; Benign prostatic hyperplasia without lower urinary tract symptoms N40.0 ; Elevated liver enzymes R74.8 ; High bilirubin R17 and Depression screening Z13.31 [facility] [address] [place] [address] 01/03/2025 [facility] [address] [place] [address] 01/03/2025 [facility] [address] [place] [address] 01/25/2025 GONZALEZ LEWIS [facility] [address] [place] [phone] 01/25/2025 GONZALEZ LEWIS [facility] [address] [place] [address] 02/08/2025 LONI BANKS ASSESSMENTS Encounter Date Diagnosis Assessment Notes Treatment Notes Treatment Clinical Notes Section Notes 04/26/2024 Type 2 diabetes mellitus with unspecified complications (ICD-10 - E11.8) #DMII: Patient to continue current medication regimen of metformin 1000 mg BID, Januvia 100 mg qd and Jardiance 25 mg qd. Patient was counseled on the importance of pairing these medications with lifestyle changes such as low carb diet and regular exercise. Hemoglobin A1c 6.7, has improved to 6.6 04/26/2024. Repeat hemoglobin A1c in 6 months. As opposed to a GLP-1 patient is opposed to GLP-1's. #HLD: Patient advised to continue Atorvastatin Calcium 40 mg Tablet qd.Lipid panel without concern #HTN: Controlled today's visit. Patient advised to continue Lisinopril-hydroCHLO ROthiazide 20-12.5 MG Tablet qd.Monitor blood pressures, call if elevated greater than 140/90. #BPH: Patient advised to continue Terazosin HCl 5 mg Capsule qhs and Oxybutynin Chloride ER 10 mg qd. Follows with urology #Hypothyroidism: Patient advised to continue Levothyroxine Sodium 100 mg qd, Repeat TSH at [facility]. # Elevated liver enzymes. AST 43, ALT 52. Patient has a history of elevated liver enzymes, that has been become controlled. This is related to weight. Most likely fatty liver disease. Educated on lifestyle modifications, decreasing Tylenol, decreasing alcohol which he already drinks minimally. Patient states he is going to start walking more with his .Liver enzymes 04/14/2024 have resolved. AST 33, ALT 30, No further workup needed at this time # Bilirubin 1.7. Educated on the importance of hydration. Urinalysis also showing specific gravity 1.044, glucose 3+, trace ketones. Potentially start of chronic kidney disease although GFR and creatinine without concern. Also could be related to type 2 diabetes.Discussed conservative treatments Follow-up in December for CPE with labs, sooner as needed. All quetsions answered to patients satisfaction. Patient verbalized understanding of diagnosis and treatments explained. To call sooner prior to next visit it any questions/concerns arise. Case discussed with collaborating physician Zackary Banks who reviewed the assessment and plan. Chart, medications, labs, vital signs reviewed. Dictation was accomplished with the use of Wevod voice recognition software, prone to medical misidentifications and grammatical errors. This is unintentional and the practitioner does try to identify and correct these, but some could still be present. Please do not hesitate to contact practitioner for clarification. 04/26/2024 Hypothyroidism, unspecified type (ICD-10 - E03.9) #DMII: Patient to continue current medication regimen of metformin 1000 mg BID, Januvia 100 mg qd and Jardiance 25 mg qd. Patient was counseled on the importance of pairing these medications with lifestyle changes such as low carb diet and regular exercise. Hemoglobin A1c 6.7, has improved to 6.6 04/26/2024. Repeat hemoglobin A1c in 6 months. As opposed to a GLP-1 patient is opposed to GLP-1's. #HLD: Patient advised to continue Atorvastatin Calcium 40 mg Tablet qd.Lipid panel without concern #HTN: Controlled today's visit. Patient advised to continue Lisinopril-hydroCHLO ROthiazide 20-12.5 MG Tablet qd.Monitor blood pressures, call if elevated greater than 140/90. #BPH: Patient advised to continue Terazosin HCl 5 mg Capsule qhs and Oxybutynin Chloride ER 10 mg qd. Follows with urology #Hypothyroidism: Patient advised to continue Levothyroxine Sodium 100 mg qd, Repeat TSH at CPE. # Elevated liver enzymes. AST 43, ALT 52. Patient has a history of elevated liver enzymes, that has been become controlled. This is related to weight. Most likely fatty liver disease. Educated on lifestyle modifications, decreasing Tylenol, decreasing alcohol which he already drinks minimally. Patient states he is going to start walking more with his .Liver enzymes 04/14/2024 have resolved. AST 33, ALT 30, No further workup needed at this time # Bilirubin 1.7. Educated on the importance of hydration. Urinalysis also showing specific gravity 1.044, glucose 3+, trace ketones. Potentially start of chronic kidney disease although GFR and creatinine without concern. Also could be related to type 2 diabetes.Discussed conservative treatments Follow-up in December for CPE with labs, sooner as needed. All quetsions answered to patients satisfaction. Patient verbalized understanding of diagnosis and treatments explained. To call sooner prior to next visit it any questions/concerns arise. Case discussed with collaborating physician Zackary Banks who reviewed the assessment and plan. Chart, medications, labs, vital signs reviewed. Dictation was accomplished with the use of Wevod voice recognition software, prone to medical misidentifications and grammatical errors. This is unintentional and the practitioner does try to identify and correct these, but some could still be present. Please do not hesitate to contact practitioner for clarification. 01/03/2025 Type 2 diabetes mellitus with unspecified complications (ICD-10 - E11.8) Juan Is a pleasant 64-year-old male who presents the office for complete physical exam. # Patient up-to-date on all routine screening and vaccines, due for pneumonia for which she will obtain at the local pharmacy. Healthcare proxy is his Shy, PHQ-9 01/03/2025 with a total score of 0. # Will refer to dermatology for routine skin check #DMII: Patient taking Januvia 100 mg once daily, metformin at 1000 mg twice daily, Jardiance 25 mg once daily. A1c 04/26/2024 was 6.3. A1c 12/2024 increased to 7.2 with a fasting glucose of 146. Patient does not wish to change medications. Plan is to have patient continue lifestyle changes, patient is aware of risks of prolonged elevated glucose. Patient educated to call if he feels as though lifestyle changes are not working and would like to change medication.Follows with ophthalmology for routine eye checks. Negative diabetic foot check, I did recommend initiation of GLP-1, but patient declines.Patient also declines insulin.States that he has been doing very poorly with his lifestyle wants to focus on this first.States that he checks his sugars at home anywhere between 90 and 140 depending on what he eats. #HLD: Patient taking Atorvastatin Calcium 40 mg Tablet qd. Patient had significant decrease to Tc: 79, LDL:16. Plan for patient to cut down to atorvastatin calcium 20 mg tablet qd #HTN: Controlled today's visit. Minimally elevated to 144 systolic. Patient advised to continue Lisinopril-hydroCHLO ROthiazide 20-12.5 MG Tablet qd.Monitor blood pressures at home and log to review at next visit, call if elevated greater than 140/90. #BPH: Patient advised to continue Terazosin HCl 5 mg Capsule qhs and Oxybutynin Chloride ER 10 mg qd. Follows with urology. Encouraged to continue following with urology. 1+ ketones, 3+ glucose in urine. Patient also has a history of kidney stones. #Hypothyroidism: Taking levothyroxine 100 mcg, TSH elevated at 5.7 12/2024, Plan to repeat TSH and draw T4, T3, and review at next visit. # Elevated liver enzymes. AST 43, ALT 52. As of December 2024, these have resolved # Bilirubin 1.7, December 2024 increased to 1.9. Educated on the importance of hydration. Continued with glucose and trace ketones. Potentially start of chronic kidney disease although GFR Without concern. BUN/creatinine evaded at 29. Also could be related to type 2 diabetes.Discussed conservative treatment. Order direct and indirect bilirubin. #Left knee pain: Patient states he is waiting for orthopedic appointment for knee workup. Patient states he had a meniscetomy, in February 2024. PE is unremarkable, some scabs over patella to mid tibial shaft. Patient educated to continue alleve until orthopedic appointment. Plan to follow up in 3 months to review labs. Patient seen and examined. Comprehensive discussion was done on the following. 1. Nutrition: It is important to follow a healthy diet based on lots of vegetables and legumes and good fat. Avoid processed food and processed carbohydrates. Prepare your own meals. Read labels and avoid high fructose corn syrup, processed chemicals added to increase shelf life and preprepared meals. Avoid fast foods. Eat slowly and plan meals for a week. Try to count calories and be mindful of daily calorie intake. Get into the habit of keeping an eye on your weight by using an appropriate scale. Learn to log exercise and discussed fitness Apps like W[employer]Parrot/loseit which can help keep log off calories taken versus calories burned. Local food should be preferred. Discussed Dirty Dozen Versus Clean Fifteen. Discussed healthy supplements like fish oil, Tumeric, Curcumin, Melatonin, Resveratrol, Probiotics, Vitamin-D, Alpha-Lipoic acid, Vitamin-D and coconut oil. 2. It is important to exercise regularly. Is a good habit to walk at least 30 minutes a day. Gentle weightlifting with standard precautions to protect the back. Finding activity like cycling or hiking and get into the habit of engaging in it. Stretching before and after the exercises important. It is also important to contact me if there are any problems like shortness of breath, chest pain, back pain and joint or muscle pain associated with the exercise. 3. Discussed age appropriate screening guidelines. Colonoscopy needs to start at age 50 with stool for occult blood as appropriate. There is a new test that can test for genetic abnormalities in the stool sample, Cologuard. This would not replace a colonoscopy but could be used as a screening tool for patients who do not want a colonoscopy. We discussed the importance of early detection of colon cancer. 4. Discussed current PSA screening. PSA screening can be done in most patients between age 50 and 65. However early detection of prostate cancer needs to carefully be balanced with complications with treatment. These include incontinence, impotence etc. Each patient should decide if they would like to have this test. 5. Discussed safe driving and no use of smart phone while driving 6. Age-appropriate immunizations were discussed. A tetanus booster is needed every 10 years. Flu vaccine is recommended every year just before the start of the flu season. Shingles vaccine is recommended after age 50 but not all insurances cover it. Pneumonia vaccine is given after age 65 unless there are certain comorbidities for which it is started earlier. 7. Diagnostic labs were discussed. These could include/not limited to CBC CMP and lipids with fasting blood glucose and insulin levels. Vitamin D and hemoglobin A1c testing might be appropriate. All quetsions answered to patients satisfaction. Patient verbalized understanding of diagnosis and treatments explained. To call sooner prior to next visit it any questions/concerns arise. Case discussed with collaborating physician Zackary Banks who reviewed the assessment and plan. Chart, medications, labs, vital signs reviewed. Dictation was accomplished with the use of [employer] voice recognition software, prone to medical misidentifications and grammatical errors. This is unintentional and the practitioner does try to identify and correct these, but some could still be present. Please do not hesitate to contact practitioner for clarification. 01/03/2025 Wellness examination (ICD-10 - Z00.00) Juan Is a pleasant 64-year-old male who presents the office for complete physical exam. # Patient up-to-date on all routine screening and vaccines, due for pneumonia for which she will obtain at the local pharmacy. Healthcare proxy is his Shy, PHQ-9 01/03/2025 with a total score of 0. # Will refer to dermatology for routine skin check #DMII: Patient taking Januvia 100 mg once daily, metformin at 1000 mg twice daily, Jardiance 25 mg once daily. A1c 04/26/2024 was 6.3. A1c 12/2024 increased to 7.2 with a fasting glucose of 146. Patient does not wish to change medications. Plan is to have patient continue lifestyle changes, patient is aware of risks of prolonged elevated glucose. Patient educated to call if he feels as though lifestyle changes are not working and would like to change medication.Follows with ophthalmology for routine eye checks. Negative diabetic foot check, I did recommend initiation of GLP-1, but patient declines.Patient also declines insulin.States that he has been doing very poorly with his lifestyle wants to focus on this first.States that he checks his sugars at home anywhere between 90 and 140 depending on what he eats. #HLD: Patient taking Atorvastatin Calcium 40 mg Tablet qd. Patient had significant decrease to Tc: 79, LDL:16. Plan for patient to cut down to atorvastatin calcium 20 mg tablet qd #HTN: Controlled today's visit. Minimally elevated to 144 systolic. Patient advised to continue Lisinopril-hydroCHLO ROthiazide 20-12.5 MG Tablet qd.Monitor blood pressures at home and log to review at next visit, call if elevated greater than 140/90. #BPH: Patient advised to continue Terazosin HCl 5 mg Capsule qhs and Oxybutynin Chloride ER 10 mg qd. Follows with urology. Encouraged to continue following with urology. 1+ ketones, 3+ glucose in urine. Patient also has a history of kidney stones. #Hypothyroidism: Taking levothyroxine 100 mcg, TSH elevated at 5.7 12/2024, Plan to repeat TSH and draw T4, T3, and review at next visit. # Elevated liver enzymes. AST 43, ALT 52. As of December 2024, these have resolved # Bilirubin 1.7, December 2024 increased to 1.9. Educated on the importance of hydration. Continued with glucose and trace ketones. Potentially start of chronic kidney disease although GFR Without concern. BUN/creatinine evaded at 29. Also could be related to type 2 diabetes.Discussed conservative treatment. Order direct and indirect bilirubin. #Left knee pain: Patient states he is waiting for orthopedic appointment for knee workup. Patient states he had a meniscetomy, in February 2024. PE is unremarkable, some scabs over patella to mid tibial shaft. Patient educated to continue alleve until orthopedic appointment. Plan to follow up in 3 months to review labs. Patient seen and examined. Comprehensive discussion was done on the following. 1. Nutrition: It is important to follow a healthy diet based on lots of vegetables and legumes and good fat. Avoid processed food and processed carbohydrates. Prepare your own meals. Read labels and avoid high fructose corn syrup, processed chemicals added to increase shelf life and preprepared meals. Avoid fast foods. Eat slowly and plan meals for a week. Try to count calories and be mindful of daily calorie intake. Get into the habit of keeping an eye on your weight by using an appropriate scale. Learn to log exercise and discussed fitness Apps like W[employer]Parrot/GRUZ[employer] which can help keep log off calories taken versus calories burned. Local food should be preferred. Discussed Dirty Dozen Versus Clean Fifteen. Discussed healthy supplements like fish oil, Tumeric, Curcumin, Melatonin, Resveratrol, Probiotics, Vitamin-D, Alpha-Lipoic acid, Vitamin-D and coconut oil. 2. It is important to exercise regularly. Is a good habit to walk at least 30 minutes a day. Gentle weightlifting with standard precautions to protect the back. Finding activity like cycling or hiking and get into the habit of engaging in it. Stretching before and after the exercises important. It is also important to contact me if there are any problems like shortness of breath, chest pain, back pain and joint or muscle pain associated with the exercise. 3. Discussed age appropriate screening guidelines. Colonoscopy needs to start at age 50 with stool for occult blood as appropriate. There is a new test that can test for genetic abnormalities in the stool sample, Cologuard. This would not replace a colonoscopy but could be used as a screening tool for patients who do not want a colonoscopy. We discussed the importance of early detection of colon cancer. 4. Discussed current PSA screening. PSA screening can be done in most patients between age 50 and 65. However early detection of prostate cancer needs to carefully be balanced with complications with treatment. These include incontinence, impotence etc. Each patient should decide if they would like to have this test. 5. Discussed safe driving and no use of smart phone while driving 6. Age-appropriate immunizations were discussed. A tetanus booster is needed every 10 years. Flu vaccine is recommended every year just before the start of the flu season. Shingles vaccine is recommended after age 50 but not all insurances cover it. Pneumonia vaccine is given after age 65 unless there are certain comorbidities for which it is started earlier. 7. Diagnostic labs were discussed. These could include/not limited to CBC CMP and lipids with fasting blood glucose and insulin levels. Vitamin D and hemoglobin A1c testing might be appropriate. All quetsions answered to patients satisfaction. Patient verbalized understanding of diagnosis and treatments explained. To call sooner prior to next visit it any questions/concerns arise. Case discussed with collaborating physician Zackary Banks who reviewed the assessment and plan. Chart, medications, labs, vital signs reviewed. Dictation was accomplished with the use of [employer] voice recognition software, prone to medical misidentifications and grammatical errors. This is unintentional and the practitioner does try to identify and correct these, but some could still be present. Please do not hesitate to contact practitioner for clarification. 01/03/2025 Hypothyroidism, unspecified type (ICD-10 - E03.9) Juan Is a pleasant 64-year-old male who presents the office for complete physical exam. # Patient up-to-date on all routine screening and vaccines, due for pneumonia for which she will obtain at the local pharmacy. Healthcare proxy is his Shy, PHQ-9 01/03/2025 with a total score of 0. # Will refer to dermatology for routine skin check #DMII: Patient taking Januvia 100 mg once daily, metformin at 1000 mg twice daily, Jardiance 25 mg once daily. A1c 04/26/2024 was 6.3. A1c 12/2024 increased to 7.2 with a fasting glucose of 146. Patient does not wish to change medications. Plan is to have patient continue lifestyle changes, patient is aware of risks of prolonged elevated glucose. Patient educated to call if he feels as though lifestyle changes are not working and would like to change medication.Follows with ophthalmology for routine eye checks. Negative diabetic foot check, I did recommend initiation of GLP-1, but patient declines.Patient also declines insulin.States that he has been doing very poorly with his lifestyle wants to focus on this first.States that he checks his sugars at home anywhere between 90 and 140 depending on what he eats. #HLD: Patient taking Atorvastatin Calcium 40 mg Tablet qd. Patient had significant decrease to Tc: 79, LDL:16. Plan for patient to cut down to atorvastatin calcium 20 mg tablet qd #HTN: Controlled today's visit. Minimally elevated to 144 systolic. Patient advised to continue Lisinopril-hydroCHLO ROthiazide 20-12.5 MG Tablet qd.Monitor blood pressures at home and log to review at next visit, call if elevated greater than 140/90. #BPH: Patient advised to continue Terazosin HCl 5 mg Capsule qhs and Oxybutynin Chloride ER 10 mg qd. Follows with urology. Encouraged to continue following with urology. 1+ ketones, 3+ glucose in urine. Patient also has a history of kidney stones. #Hypothyroidism: Taking levothyroxine 100 mcg, TSH elevated at 5.7 12/2024, Plan to repeat TSH and draw T4, T3, and review at next visit. # Elevated liver enzymes. AST 43, ALT 52. As of December 2024, these have resolved # Bilirubin 1.7, December 2024 increased to 1.9. Educated on the importance of hydration. Continued with glucose and trace ketones. Potentially start of chronic kidney disease although GFR Without concern. BUN/creatinine evaded at 29. Also could be related to type 2 diabetes.Discussed conservative treatment. Order direct and indirect bilirubin. #Left knee pain: Patient states he is waiting for orthopedic appointment for knee workup. Patient states he had a meniscetomy, in February 2024. PE is unremarkable, some scabs over patella to mid tibial shaft. Patient educated to continue alleve until orthopedic appointment. Plan to follow up in 3 months to review labs. Patient seen and examined. Comprehensive discussion was done on the following. 1. Nutrition: It is important to follow a healthy diet based on lots of vegetables and legumes and good fat. Avoid processed food and processed carbohydrates. Prepare your own meals. Read labels and avoid high fructose corn syrup, processed chemicals added to increase shelf life and preprepared meals. Avoid fast foods. Eat slowly and plan meals for a week. Try to count calories and be mindful of daily calorie intake. Get into the habit of keeping an eye on your weight by using an appropriate scale. Learn to log exercise and discussed fitness Apps like [employer] which can help keep log off calories taken versus calories burned. Local food should be preferred. Discussed Dirty Dozen Versus Clean Fifteen. Discussed healthy supplements like fish oil, Tumeric, Curcumin, Melatonin, Resveratrol, Probiotics, Vitamin-D, Alpha-Lipoic acid, Vitamin-D and coconut oil. 2. It is important to exercise regularly. Is a good habit to walk at least 30 minutes a day. Gentle weightlifting with standard precautions to protect the back. Finding activity like cycling or hiking and get into the habit of engaging in it. Stretching before and after the exercises important. It is also important to contact me if there are any problems like shortness of breath, chest pain, back pain and joint or muscle pain associated with the exercise. 3. Discussed age appropriate screening guidelines. Colonoscopy needs to start at age 50 with stool for occult blood as appropriate. There is a new test that can test for genetic abnormalities in the stool sample, Cologuard. This would not replace a colonoscopy but could be used as a screening tool for patients who do not want a colonoscopy. We discussed the importance of early detection of colon cancer. 4. Discussed current PSA screening. PSA screening can be done in most patients between age 50 and 65. However early detection of prostate cancer needs to carefully be balanced with complications with treatment. These include incontinence, impotence etc. Each patient should decide if they would like to have this test. 5. Discussed safe driving and no use of smart phone while driving 6. Age-appropriate immunizations were discussed. A tetanus booster is needed every 10 years. Flu vaccine is recommended every year just before the start of the flu season. Shingles vaccine is recommended after age 50 but not all insurances cover it. Pneumonia vaccine is given after age 65 unless there are certain comorbidities for which it is started earlier. 7. Diagnostic labs were discussed. These could include/not limited to CBC CMP and lipids with fasting blood glucose and insulin levels. Vitamin D and hemoglobin A1c testing might be appropriate. All quetsions answered to patients satisfaction. Patient verbalized understanding of diagnosis and treatments explained. To call sooner prior to next visit it any questions/concerns arise. Case discussed with collaborating physician Zackary Banks who reviewed the assessment and plan. Chart, medications, labs, vital signs reviewed. Dictation was accomplished with the use of [employer] voice recognition software, prone to medical misidentifications and grammatical errors. This is unintentional and the practitioner does try to identify and correct these, but some could still be present. Please do not hesitate to contact practitioner for clarification. 04/26/2024 Hyperlipidemia, unspecified hyperlipidemia type (ICD-10 - E78.5) #DMII: Patient to continue current medication regimen of metformin 1000 mg BID, Januvia 100 mg qd and Jardiance 25 mg qd. Patient was counseled on the importance of pairing these medications with lifestyle changes such as low carb diet and regular exercise. Hemoglobin A1c 6.7, has improved to 6.6 04/26/2024. Repeat hemoglobin A1c in 6 months. As opposed to a GLP-1 patient is opposed to GLP-1's. #HLD: Patient advised to continue Atorvastatin Calcium 40 mg Tablet qd.Lipid panel without concern #HTN: Controlled today's visit. Patient advised to continue Lisinopril-hydroCHLO ROthiazide 20-12.5 MG Tablet qd.Monitor blood pressures, call if elevated greater than 140/90. #BPH: Patient advised to continue Terazosin HCl 5 mg Capsule qhs and Oxybutynin Chloride ER 10 mg qd. Follows with urology #Hypothyroidism: Patient advised to continue Levothyroxine Sodium 100 mg qd, Repeat TSH at [facility]. # Elevated liver enzymes. AST 43, ALT 52. Patient has a history of elevated liver enzymes, that has been become controlled. This is related to weight. Most likely fatty liver disease. Educated on lifestyle modifications, decreasing Tylenol, decreasing alcohol which he already drinks minimally. Patient states he is going to start walking more with his .Liver enzymes 04/14/2024 have resolved. AST 33, ALT 30, No further workup needed at this time # Bilirubin 1.7. Educated on the importance of hydration. Urinalysis also showing specific gravity 1.044, glucose 3+, trace ketones. Potentially start of chronic kidney disease although GFR and creatinine without concern. Also could be related to type 2 diabetes.Discussed conservative treatments Follow-up in December for CPE with labs, sooner as needed. All quetsions answered to patients satisfaction. Patient verbalized understanding of diagnosis and treatments explained. To call sooner prior to next visit it any questions/concerns arise. Case discussed with collaborating physician Zackary Banks who reviewed the assessment and plan. Chart, medications, labs, vital signs reviewed. Dictation was accomplished with the use of [employer] voice recognition software, prone to medical misidentifications and grammatical errors. This is unintentional and the practitioner does try to identify and correct these, but some could still be present. Please do not hesitate to contact practitioner for clarification. 04/26/2024 Hypertension, unspecified type (ICD-10 - I10) #DMII: Patient to continue current medication regimen of metformin 1000 mg BID, Januvia 100 mg qd and Jardiance 25 mg qd. Patient was counseled on the importance of pairing these medications with lifestyle changes such as low carb diet and regular exercise. Hemoglobin A1c 6.7, has improved to 6.6 04/26/2024. Repeat hemoglobin A1c in 6 months. As opposed to a GLP-1 patient is opposed to GLP-1's. #HLD: Patient advised to continue Atorvastatin Calcium 40 mg Tablet qd.Lipid panel without concern #HTN: Controlled today's visit. Patient advised to continue Lisinopril-hydroCHLO ROthiazide 20-12.5 MG Tablet qd.Monitor blood pressures, call if elevated greater than 140/90. #BPH: Patient advised to continue Terazosin HCl 5 mg Capsule qhs and Oxybutynin Chloride ER 10 mg qd. Follows with urology #Hypothyroidism: Patient advised to continue Levothyroxine Sodium 100 mg qd, Repeat TSH at [facility]. # Elevated liver enzymes. AST 43, ALT 52. Patient has a history of elevated liver enzymes, that has been become controlled. This is related to weight. Most likely fatty liver disease. Educated on lifestyle modifications, decreasing Tylenol, decreasing alcohol which he already drinks minimally. Patient states he is going to start walking more with his .Liver enzymes 04/14/2024 have resolved. AST 33, ALT 30, No further workup needed at this time # Bilirubin 1.7. Educated on the importance of hydration. Urinalysis also showing specific gravity 1.044, glucose 3+, trace ketones. Potentially start of chronic kidney disease although GFR and creatinine without concern. Also could be related to type 2 diabetes.Discussed conservative treatments Follow-up in December for CPE with labs, sooner as needed. All quetsions answered to patients satisfaction. Patient verbalized understanding of diagnosis and treatments explained. To call sooner prior to next visit it any questions/concerns arise. Case discussed with collaborating physician Zackary Banks who reviewed the assessment and plan. Chart, medications, labs, vital signs reviewed. Dictation was accomplished with the use of [employer] voice recognition software, prone to medical misidentifications and grammatical errors. This is unintentional and the practitioner does try to identify and correct these, but some could still be present. Please do not hesitate to contact practitioner for clarification. 01/03/2025 Hyperlipidemia, unspecified hyperlipidemia type (ICD-10 - E78.5) Juan Is a pleasant 64-year-old male who presents the office for complete physical exam. # Patient up-to-date on all routine screening and vaccines, due for pneumonia for which she will obtain at the local pharmacy. Healthcare proxy is his Shy, PHQ-9 01/03/2025 with a total score of 0. # Will refer to dermatology for routine skin check #DMII: Patient taking Januvia 100 mg once daily, metformin at 1000 mg twice daily, Jardiance 25 mg once daily. A1c 04/26/2024 was 6.3. A1c 12/2024 increased to 7.2 with a fasting glucose of 146. Patient does not wish to change medications. Plan is to have patient continue lifestyle changes, patient is aware of risks of prolonged elevated glucose. Patient educated to call if he feels as though lifestyle changes are not working and would like to change medication.Follows with ophthalmology for routine eye checks. Negative diabetic foot check, I did recommend initiation of GLP-1, but patient declines.Patient also declines insulin.States that he has been doing very poorly with his lifestyle wants to focus on this first.States that he checks his sugars at home anywhere between 90 and 140 depending on what he eats. #HLD: Patient taking Atorvastatin Calcium 40 mg Tablet qd. Patient had significant decrease to Tc: 79, LDL:16. Plan for patient to cut down to atorvastatin calcium 20 mg tablet qd #HTN: Controlled today's visit. Minimally elevated to 144 systolic. Patient advised to continue Lisinopril-hydroCHLO ROthiazide 20-12.5 MG Tablet qd.Monitor blood pressures at home and log to review at next visit, call if elevated greater than 140/90. #BPH: Patient advised to continue Terazosin HCl 5 mg Capsule qhs and Oxybutynin Chloride ER 10 mg qd. Follows with urology. Encouraged to continue following with urology. 1+ ketones, 3+ glucose in urine. Patient also has a history of kidney stones. #Hypothyroidism: Taking levothyroxine 100 mcg, TSH elevated at 5.7 12/2024, Plan to repeat TSH and draw T4, T3, and review at next visit. # Elevated liver enzymes. AST 43, ALT 52. As of December 2024, these have resolved # Bilirubin 1.7, December 2024 increased to 1.9. Educated on the importance of hydration. Continued with glucose and trace ketones. Potentially start of chronic kidney disease although GFR Without concern. BUN/creatinine evaded at 29. Also could be related to type 2 diabetes.Discussed conservative treatment. Order direct and indirect bilirubin. #Left knee pain: Patient states he is waiting for orthopedic appointment for knee workup. Patient states he had a meniscetomy, in February 2024. PE is unremarkable, some scabs over patella to mid tibial shaft. Patient educated to continue alleve until orthopedic appointment. Plan to follow up in 3 months to review labs. Patient seen and examined. Comprehensive discussion was done on the following. 1. Nutrition: It is important to follow a healthy diet based on lots of vegetables and legumes and good fat. Avoid processed food and processed carbohydrates. Prepare your own meals. Read labels and avoid high fructose corn syrup, processed chemicals added to increase shelf life and preprepared meals. Avoid fast foods. Eat slowly and plan meals for a week. Try to count calories and be mindful of daily calorie intake. Get into the habit of keeping an eye on your weight by using an appropriate scale. Learn to log exercise and discussed fitness Apps like [employer] which can help keep log off calories taken versus calories burned. Local food should be preferred. Discussed Dirty Dozen Versus Clean Fifteen. Discussed healthy supplements like fish oil, Tumeric, Curcumin, Melatonin, Resveratrol, Probiotics, Vitamin-D, Alpha-Lipoic acid, Vitamin-D and coconut oil. 2. It is important to exercise regularly. Is a good habit to walk at least 30 minutes a day. Gentle weightlifting with standard precautions to protect the back. Finding activity like cycling or hiking and get into the habit of engaging in it. Stretching before and after the exercises important. It is also important to contact me if there are any problems like shortness of breath, chest pain, back pain and joint or muscle pain associated with the exercise. 3. Discussed age appropriate screening guidelines. Colonoscopy needs to start at age 50 with stool for occult blood as appropriate. There is a new test that can test for genetic abnormalities in the stool sample, Cologuard. This would not replace a colonoscopy but could be used as a screening tool for patients who do not want a colonoscopy. We discussed the importance of early detection of colon cancer. 4. Discussed current PSA screening. PSA screening can be done in most patients between age 50 and 65. However early detection of prostate cancer needs to carefully be balanced with complications with treatment. These include incontinence, impotence etc. Each patient should decide if they would like to have this test. 5. Discussed safe driving and no use of smart phone while driving 6. Age-appropriate immunizations were discussed. A tetanus booster is needed every 10 years. Flu vaccine is recommended every year just before the start of the flu season. Shingles vaccine is recommended after age 50 but not all insurances cover it. Pneumonia vaccine is given after age 65 unless there are certain comorbidities for which it is started earlier. 7. Diagnostic labs were discussed. These could include/not limited to CBC CMP and lipids with fasting blood glucose and insulin levels. Vitamin D and hemoglobin A1c testing might be appropriate. All quetsions answered to patients satisfaction. Patient verbalized understanding of diagnosis and treatments explained. To call sooner prior to next visit it any questions/concerns arise. Case discussed with collaborating physician Zackary Banks who reviewed the assessment and plan. Chart, medications, labs, vital signs reviewed. Dictation was accomplished with the use of [employer] voice recognition software, prone to medical misidentifications and grammatical errors. This is unintentional and the practitioner does try to identify and correct these, but some could still be present. Please do not hesitate to contact practitioner for clarification. 04/26/2024 Benign prostatic hyperplasia without lower urinary tract symptoms (ICD-10 - N40.0) #DMII: Patient to continue current medication regimen of metformin 1000 mg BID, Januvia 100 mg qd and Jardiance 25 mg qd. Patient was counseled on the importance of pairing these medications with lifestyle changes such as low carb diet and regular exercise. Hemoglobin A1c 6.7, has improved to 6.6 04/26/2024. Repeat hemoglobin A1c in 6 months. As opposed to a GLP-1 patient is opposed to GLP-1's. #HLD: Patient advised to continue Atorvastatin Calcium 40 mg Tablet qd.Lipid panel without concern #HTN: Controlled today's visit. Patient advised to continue Lisinopril-hydroCHLO ROthiazide 20-12.5 MG Tablet qd.Monitor blood pressures, call if elevated greater than 140/90. #BPH: Patient advised to continue Terazosin HCl 5 mg Capsule qhs and Oxybutynin Chloride ER 10 mg qd. Follows with urology #Hypothyroidism: Patient advised to continue Levothyroxine Sodium 100 mg qd, Repeat TSH at [facility]. # Elevated liver enzymes. AST 43, ALT 52. Patient has a history of elevated liver enzymes, that has been become controlled. This is related to weight. Most likely fatty liver disease. Educated on lifestyle modifications, decreasing Tylenol, decreasing alcohol which he already drinks minimally. Patient states he is going to start walking more with his .Liver enzymes 04/14/2024 have resolved. AST 33, ALT 30, No further workup needed at this time # Bilirubin 1.7. Educated on the importance of hydration. Urinalysis also showing specific gravity 1.044, glucose 3+, trace ketones. Potentially start of chronic kidney disease although GFR and creatinine without concern. Also could be related to type 2 diabetes.Discussed conservative treatments Follow-up in December for CPE with labs, sooner as needed. All quetsions answered to patients satisfaction. Patient verbalized understanding of diagnosis and treatments explained. To call sooner prior to next visit it any questions/concerns arise. Case discussed with collaborating physician Zackary Banks who reviewed the assessment and plan. Chart, medications, labs, vital signs reviewed. Dictation was accomplished with the use of [employer] voice recognition software, prone to medical misidentifications and grammatical errors. This is unintentional and the practitioner does try to identify and correct these, but some could still be present. Please do not hesitate to contact practitioner for clarification. 01/03/2025 Hypertension, unspecified type (ICD-10 - I10) Juan Is a pleasant 64-year-old male who presents the office for complete physical exam. # Patient up-to-date on all routine screening and vaccines, due for pneumonia for which she will obtain at the local pharmacy. Healthcare proxy is his Shy, PHQ-9 01/03/2025 with a total score of 0. # Will refer to dermatology for routine skin check #DMII: Patient taking Januvia 100 mg once daily, metformin at 1000 mg twice daily, Jardiance 25 mg once daily. A1c 04/26/2024 was 6.3. A1c 12/2024 increased to 7.2 with a fasting glucose of 146. Patient does not wish to change medications. Plan is to have patient continue lifestyle changes, patient is aware of risks of prolonged elevated glucose. Patient educated to call if he feels as though lifestyle changes are not working and would like to change medication.Follows with ophthalmology for routine eye checks. Negative diabetic foot check, I did recommend initiation of GLP-1, but patient declines.Patient also declines insulin.States that he has been doing very poorly with his lifestyle wants to focus on this first.States that he checks his sugars at home anywhere between 90 and 140 depending on what he eats. #HLD: Patient taking Atorvastatin Calcium 40 mg Tablet qd. Patient had significant decrease to Tc: 79, LDL:16. Plan for patient to cut down to atorvastatin calcium 20 mg tablet qd #HTN: Controlled today's visit. Minimally elevated to 144 systolic. Patient advised to continue Lisinopril-hydroCHLO ROthiazide 20-12.5 MG Tablet qd.Monitor blood pressures at home and log to review at next visit, call if elevated greater than 140/90. #BPH: Patient advised to continue Terazosin HCl 5 mg Capsule qhs and Oxybutynin Chloride ER 10 mg qd. Follows with urology. Encouraged to continue following with urology. 1+ ketones, 3+ glucose in urine. Patient also has a history of kidney stones. #Hypothyroidism: Taking levothyroxine 100 mcg, TSH elevated at 5.7 12/2024, Plan to repeat TSH and draw T4, T3, and review at next visit. # Elevated liver enzymes. AST 43, ALT 52. As of December 2024, these have resolved # Bilirubin 1.7, December 2024 increased to 1.9. Educated on the importance of hydration. Continued with glucose and trace ketones. Potentially start of chronic kidney disease although GFR Without concern. BUN/creatinine evaded at 29. Also could be related to type 2 diabetes.Discussed conservative treatment. Order direct and indirect bilirubin. #Left knee pain: Patient states he is waiting for orthopedic appointment for knee workup. Patient states he had a meniscetomy, in February 2024. PE is unremarkable, some scabs over patella to mid tibial shaft. Patient educated to continue alleve until orthopedic appointment. Plan to follow up in 3 months to review labs. Patient seen and examined. Comprehensive discussion was done on the following. 1. Nutrition: It is important to follow a healthy diet based on lots of vegetables and legumes and good fat. Avoid processed food and processed carbohydrates. Prepare your own meals. Read labels and avoid high fructose corn syrup, processed chemicals added to increase shelf life and preprepared meals. Avoid fast foods. Eat slowly and plan meals for a week. Try to count calories and be mindful of daily calorie intake. Get into the habit of keeping an eye on your weight by using an appropriate scale. Learn to log exercise and discussed fitness Apps like WittyParrot/GRUZOBZOR which can help keep log off calories taken versus calories burned. Local food should be preferred. Discussed Dirty Dozen Versus Clean Fifteen. Discussed healthy supplements like fish oil, Tumeric, Curcumin, Melatonin, Resveratrol, Probiotics, Vitamin-D, Alpha-Lipoic acid, Vitamin-D and coconut oil. 2. It is important to exercise regularly. Is a good habit to walk at least 30 minutes a day. Gentle weightlifting with standard precautions to protect the back. Finding activity like cycling or hiking and get into the habit of engaging in it. Stretching before and after the exercises important. It is also important to contact me if there are any problems like shortness of breath, chest pain, back pain and joint or muscle pain associated with the exercise. 3. Discussed age appropriate screening guidelines. Colonoscopy needs to start at age 50 with stool for occult blood as appropriate. There is a new test that can test for genetic abnormalities in the stool sample, Cologuard. This would not replace a colonoscopy but could be used as a screening tool for patients who do not want a colonoscopy. We discussed the importance of early detection of colon cancer. 4. Discussed current PSA screening. PSA screening can be done in most patients between age 50 and 65. However early detection of prostate cancer needs to carefully be balanced with complications with treatment. These include incontinence, impotence etc. Each patient should decide if they would like to have this test. 5. Discussed safe driving and no use of smart phone while driving 6. Age-appropriate immunizations were discussed. A tetanus booster is needed every 10 years. Flu vaccine is recommended every year just before the start of the flu season. Shingles vaccine is recommended after age 50 but not all insurances cover it. Pneumonia vaccine is given after age 65 unless there are certain comorbidities for which it is started earlier. 7. Diagnostic labs were discussed. These could include/not limited to CBC CMP and lipids with fasting blood glucose and insulin levels. Vitamin D and hemoglobin A1c testing might be appropriate. All quetsions answered to patients satisfaction. Patient verbalized understanding of diagnosis and treatments explained. To call sooner prior to next visit it any questions/concerns arise. Case discussed with collaborating physician Zackary Banks who reviewed the assessment and plan. Chart, medications, labs, vital signs reviewed. Dictation was accomplished with the use of [employer] voice recognition software, prone to medical misidentifications and grammatical errors. This is unintentional and the practitioner does try to identify and correct these, but some could still be present. Please do not hesitate to contact practitioner for clarification. 04/26/2024 Elevated liver enzymes (ICD-10 - R74.8) #DMII: Patient to continue current medication regimen of metformin 1000 mg BID, Januvia 100 mg qd and Jardiance 25 mg qd. Patient was counseled on the importance of pairing these medications with lifestyle changes such as low carb diet and regular exercise. Hemoglobin A1c 6.7, has improved to 6.6 04/26/2024. Repeat hemoglobin A1c in 6 months. As opposed to a GLP-1 patient is opposed to GLP-1's. #HLD: Patient advised to continue Atorvastatin Calcium 40 mg Tablet qd.Lipid panel without concern #HTN: Controlled today's visit. Patient advised to continue Lisinopril-hydroCHLO ROthiazide 20-12.5 MG Tablet qd.Monitor blood pressures, call if elevated greater than 140/90. #BPH: Patient advised to continue Terazosin HCl 5 mg Capsule qhs and Oxybutynin Chloride ER 10 mg qd. Follows with urology #Hypothyroidism: Patient advised to continue Levothyroxine Sodium 100 mg qd, Repeat TSH at CPE. # Elevated liver enzymes. AST 43, ALT 52. Patient has a history of elevated liver enzymes, that has been become controlled. This is related to weight. Most likely fatty liver disease. Educated on lifestyle modifications, decreasing Tylenol, decreasing alcohol which he already drinks minimally. Patient states he is going to start walking more with his .Liver enzymes 04/14/2024 have resolved. AST 33, ALT 30, No further workup needed at this time # Bilirubin 1.7. Educated on the importance of hydration. Urinalysis also showing specific gravity 1.044, glucose 3+, trace ketones. Potentially start of chronic kidney disease although GFR and creatinine without concern. Also could be related to type 2 diabetes.Discussed conservative treatments Follow-up in December for CPE with labs, sooner as needed. All quetsions answered to patients satisfaction. Patient verbalized understanding of diagnosis and treatments explained. To call sooner prior to next visit it any questions/concerns arise. Case discussed with collaborating physician Zackary Banks who reviewed the assessment and plan. Chart, medications, labs, vital signs reviewed. Dictation was accomplished with the use of [employer] voice recognition software, prone to medical misidentifications and grammatical errors. This is unintentional and the practitioner does try to identify and correct these, but some could still be present. Please do not hesitate to contact practitioner for clarification. 01/03/2025 Benign prostatic hyperplasia without lower urinary tract symptoms (ICD-10 - N40.0) Juan Is a pleasant 64-year-old male who presents the office for complete physical exam. # Patient up-to-date on all routine screening and vaccines, due for pneumonia for which she will obtain at the local pharmacy. Healthcare proxy is his Shy, PHQ-9 01/03/2025 with a total score of 0. # Will refer to dermatology for routine skin check #DMII: Patient taking Januvia 100 mg once daily, metformin at 1000 mg twice daily, Jardiance 25 mg once daily. A1c 04/26/2024 was 6.3. A1c 12/2024 increased to 7.2 with a fasting glucose of 146. Patient does not wish to change medications. Plan is to have patient continue lifestyle changes, patient is aware of risks of prolonged elevated glucose. Patient educated to call if he feels as though lifestyle changes are not working and would like to change medication.Follows with ophthalmology for routine eye checks. Negative diabetic foot check, I did recommend initiation of GLP-1, but patient declines.Patient also declines insulin.States that he has been doing very poorly with his lifestyle wants to focus on this first.States that he checks his sugars at home anywhere between 90 and 140 depending on what he eats. #HLD: Patient taking Atorvastatin Calcium 40 mg Tablet qd. Patient had significant decrease to Tc: 79, LDL:16. Plan for patient to cut down to atorvastatin calcium 20 mg tablet qd #HTN: Controlled today's visit. Minimally elevated to 144 systolic. Patient advised to continue Lisinopril-hydroCHLO ROthiazide 20-12.5 MG Tablet qd.Monitor blood pressures at home and log to review at next visit, call if elevated greater than 140/90. #BPH: Patient advised to continue Terazosin HCl 5 mg Capsule qhs and Oxybutynin Chloride ER 10 mg qd. Follows with urology. Encouraged to continue following with urology. 1+ ketones, 3+ glucose in urine. Patient also has a history of kidney stones. #Hypothyroidism: Taking levothyroxine 100 mcg, TSH elevated at 5.7 12/2024, Plan to repeat TSH and draw T4, T3, and review at next visit. # Elevated liver enzymes. AST 43, ALT 52. As of December 2024, these have resolved # Bilirubin 1.7, December 2024 increased to 1.9. Educated on the importance of hydration. Continued with glucose and trace ketones. Potentially start of chronic kidney disease although GFR Without concern. BUN/creatinine evaded at 29. Also could be related to type 2 diabetes.Discussed conservative treatment. Order direct and indirect bilirubin. #Left knee pain: Patient states he is waiting for orthopedic appointment for knee workup. Patient states he had a meniscetomy, in February 2024. PE is unremarkable, some scabs over patella to mid tibial shaft. Patient educated to continue alleve until orthopedic appointment. Plan to follow up in 3 months to review labs. Patient seen and examined. Comprehensive discussion was done on the following. 1. Nutrition: It is important to follow a healthy diet based on lots of vegetables and legumes and good fat. Avoid processed food and processed carbohydrates. Prepare your own meals. Read labels and avoid high fructose corn syrup, processed chemicals added to increase shelf life and preprepared meals. Avoid fast foods. Eat slowly and plan meals for a week. Try to count calories and be mindful of daily calorie intake. Get into the habit of keeping an eye on your weight by using an appropriate scale. Learn to log exercise and discussed fitness Apps like Butterpal/loseit which can help keep log off calories taken versus calories burned. Local food should be preferred. Discussed Dirty Dozen Versus Clean Fifteen. Discussed healthy supplements like fish oil, Tumeric, Curcumin, Melatonin, Resveratrol, Probiotics, Vitamin-D, Alpha-Lipoic acid, Vitamin-D and coconut oil. 2. It is important to exercise regularly. Is a good habit to walk at least 30 minutes a day. Gentle weightlifting with standard precautions to protect the back. Finding activity like cycling or hiking and get into the habit of engaging in it. Stretching before and after the exercises important. It is also important to contact me if there are any problems like shortness of breath, chest pain, back pain and joint or muscle pain associated with the exercise. 3. Discussed age appropriate screening guidelines. Colonoscopy needs to start at age 50 with stool for occult blood as appropriate. There is a new test that can test for genetic abnormalities in the stool sample, Cologuard. This would not replace a colonoscopy but could be used as a screening tool for patients who do not want a colonoscopy. We discussed the importance of early detection of colon cancer. 4. Discussed current PSA screening. PSA screening can be done in most patients between age 50 and 65. However early detection of prostate cancer needs to carefully be balanced with complications with treatment. These include incontinence, impotence etc. Each patient should decide if they would like to have this test. 5. Discussed safe driving and no use of smart phone while driving 6. Age-appropriate immunizations were discussed. A tetanus booster is needed every 10 years. Flu vaccine is recommended every year just before the start of the flu season. Shingles vaccine is recommended after age 50 but not all insurances cover it. Pneumonia vaccine is given after age 65 unless there are certain comorbidities for which it is started earlier. 7. Diagnostic labs were discussed. These could include/not limited to CBC CMP and lipids with fasting blood glucose and insulin levels. Vitamin D and hemoglobin A1c testing might be appropriate. All quetsions answered to patients satisfaction. Patient verbalized understanding of diagnosis and treatments explained. To call sooner prior to next visit it any questions/concerns arise. Case discussed with collaborating physician Zackary Banks who reviewed the assessment and plan. Chart, medications, labs, vital signs reviewed. Dictation was accomplished with the use of [employer] voice recognition software, prone to medical misidentifications and grammatical errors. This is unintentional and the practitioner does try to identify and correct these, but some could still be present. Please do not hesitate to contact practitioner for clarification. 01/03/2025 Elevated liver enzymes (ICD-10 - R74.8) Juan Is a pleasant 64-year-old male who presents the office for complete physical exam. # Patient up-to-date on all routine screening and vaccines, due for pneumonia for which she will obtain at the local pharmacy. Healthcare proxy is his Shy, PHQ-9 01/03/2025 with a total score of 0. # Will refer to dermatology for routine skin check #DMII: Patient taking Januvia 100 mg once daily, metformin at 1000 mg twice daily, Jardiance 25 mg once daily. A1c 04/26/2024 was 6.3. A1c 12/2024 increased to 7.2 with a fasting glucose of 146. Patient does not wish to change medications. Plan is to have patient continue lifestyle changes, patient is aware of risks of prolonged elevated glucose. Patient educated to call if he feels as though lifestyle changes are not working and would like to change medication.Follows with ophthalmology for routine eye checks. Negative diabetic foot check, I did recommend initiation of GLP-1, but patient declines.Patient also declines insulin.States that he has been doing very poorly with his lifestyle wants to focus on this first.States that he checks his sugars at home anywhere between 90 and 140 depending on what he eats. #HLD: Patient taking Atorvastatin Calcium 40 mg Tablet qd. Patient had significant decrease to Tc: 79, LDL:16. Plan for patient to cut down to atorvastatin calcium 20 mg tablet qd #HTN: Controlled today's visit. Minimally elevated to 144 systolic. Patient advised to continue Lisinopril-hydroCHLO ROthiazide 20-12.5 MG Tablet qd.Monitor blood pressures at home and log to review at next visit, call if elevated greater than 140/90. #BPH: Patient advised to continue Terazosin HCl 5 mg Capsule qhs and Oxybutynin Chloride ER 10 mg qd. Follows with urology. Encouraged to continue following with urology. 1+ ketones, 3+ glucose in urine. Patient also has a history of kidney stones. #Hypothyroidism: Taking levothyroxine 100 mcg, TSH elevated at 5.7 12/2024, Plan to repeat TSH and draw T4, T3, and review at next visit. # Elevated liver enzymes. AST 43, ALT 52. As of December 2024, these have resolved # Bilirubin 1.7, December 2024 increased to 1.9. Educated on the importance of hydration. Continued with glucose and trace ketones. Potentially start of chronic kidney disease although GFR Without concern. BUN/creatinine evaded at 29. Also could be related to type 2 diabetes.Discussed conservative treatment. Order direct and indirect bilirubin. #Left knee pain: Patient states he is waiting for orthopedic appointment for knee workup. Patient states he had a meniscetomy, in February 2024. PE is unremarkable, some scabs over patella to mid tibial shaft. Patient educated to continue alleve until orthopedic appointment. Plan to follow up in 3 months to review labs. Patient seen and examined. Comprehensive discussion was done on the following. 1. Nutrition: It is important to follow a healthy diet based on lots of vegetables and legumes and good fat. Avoid processed food and processed carbohydrates. Prepare your own meals. Read labels and avoid high fructose corn syrup, processed chemicals added to increase shelf life and preprepared meals. Avoid fast foods. Eat slowly and plan meals for a week. Try to count calories and be mindful of daily calorie intake. Get into the habit of keeping an eye on your weight by using an appropriate scale. Learn to log exercise and discussed fitness Apps like WittyParrot/GRUZ[employer]ZOR which can help keep log off calories taken versus calories burned. Local food should be preferred. Discussed Dirty Dozen Versus Clean Fifteen. Discussed healthy supplements like fish oil, Tumeric, Curcumin, Melatonin, Resveratrol, Probiotics, Vitamin-D, Alpha-Lipoic acid, Vitamin-D and coconut oil. 2. It is important to exercise regularly. Is a good habit to walk at least 30 minutes a day. Gentle weightlifting with standard precautions to protect the back. Finding activity like cycling or hiking and get into the habit of engaging in it. Stretching before and after the exercises important. It is also important to contact me if there are any problems like shortness of breath, chest pain, back pain and joint or muscle pain associated with the exercise. 3. Discussed age appropriate screening guidelines. Colonoscopy needs to start at age 50 with stool for occult blood as appropriate. There is a new test that can test for genetic abnormalities in the stool sample, Cologuard. This would not replace a colonoscopy but could be used as a screening tool for patients who do not want a colonoscopy. We discussed the importance of early detection of colon cancer. 4. Discussed current PSA screening. PSA screening can be done in most patients between age 50 and 65. However early detection of prostate cancer needs to carefully be balanced with complications with treatment. These include incontinence, impotence etc. Each patient should decide if they would like to have this test. 5. Discussed safe driving and no use of smart phone while driving 6. Age-appropriate immunizations were discussed. A tetanus booster is needed every 10 years. Flu vaccine is recommended every year just before the start of the flu season. Shingles vaccine is recommended after age 50 but not all insurances cover it. Pneumonia vaccine is given after age 65 unless there are certain comorbidities for which it is started earlier. 7. Diagnostic labs were discussed. These could include/not limited to CBC CMP and lipids with fasting blood glucose and insulin levels. Vitamin D and hemoglobin A1c testing might be appropriate. All quetsions answered to patients satisfaction. Patient verbalized understanding of diagnosis and treatments explained. To call sooner prior to next visit it any questions/concerns arise. Case discussed with collaborating physician Zackary Banks who reviewed the assessment and plan. Chart, medications, labs, vital signs reviewed. Dictation was accomplished with the use of [employer] voice recognition software, prone to medical misidentifications and grammatical errors. This is unintentional and the practitioner does try to identify and correct these, but some could still be present. Please do not hesitate to contact practitioner for clarification. 01/03/2025 High bilirubin (ICD-10 - R17) Juan Is a pleasant 64-year-old male who presents the office for complete physical exam. # Patient up-to-date on all routine screening and vaccines, due for pneumonia for which she will obtain at the local pharmacy. Healthcare proxy is his Shy, PHQ-9 01/03/2025 with a total score of 0. # Will refer to dermatology for routine skin check #DMII: Patient taking Januvia 100 mg once daily, metformin at 1000 mg twice daily, Jardiance 25 mg once daily. A1c 04/26/2024 was 6.3. A1c 12/2024 increased to 7.2 with a fasting glucose of 146. Patient does not wish to change medications. Plan is to have patient continue lifestyle changes, patient is aware of risks of prolonged elevated glucose. Patient educated to call if he feels as though lifestyle changes are not working and would like to change medication.Follows with ophthalmology for routine eye checks. Negative diabetic foot check, I did recommend initiation of GLP-1, but patient declines.Patient also declines insulin.States that he has been doing very poorly with his lifestyle wants to focus on this first.States that he checks his sugars at home anywhere between 90 and 140 depending on what he eats. #HLD: Patient taking Atorvastatin Calcium 40 mg Tablet qd. Patient had significant decrease to Tc: 79, LDL:16. Plan for patient to cut down to atorvastatin calcium 20 mg tablet qd #HTN: Controlled today's visit. Minimally elevated to 144 systolic. Patient advised to continue Lisinopril-hydroCHLO ROthiazide 20-12.5 MG Tablet qd.Monitor blood pressures at home and log to review at next visit, call if elevated greater than 140/90. #BPH: Patient advised to continue Terazosin HCl 5 mg Capsule qhs and Oxybutynin Chloride ER 10 mg qd. Follows with urology. Encouraged to continue following with urology. 1+ ketones, 3+ glucose in urine. Patient also has a history of kidney stones. #Hypothyroidism: Taking levothyroxine 100 mcg, TSH elevated at 5.7 12/2024, Plan to repeat TSH and draw T4, T3, and review at next visit. # Elevated liver enzymes. AST 43, ALT 52. As of December 2024, these have resolved # Bilirubin 1.7, December 2024 increased to 1.9. Educated on the importance of hydration. Continued with glucose and trace ketones. Potentially start of chronic kidney disease although GFR Without concern. BUN/creatinine evaded at 29. Also could be related to type 2 diabetes.Discussed conservative treatment. Order direct and indirect bilirubin. #Left knee pain: Patient states he is waiting for orthopedic appointment for knee workup. Patient states he had a meniscetomy, in February 2024. PE is unremarkable, some scabs over patella to mid tibial shaft. Patient educated to continue alleve until orthopedic appointment. Plan to follow up in 3 months to review labs. Patient seen and examined. Comprehensive discussion was done on the following. 1. Nutrition: It is important to follow a healthy diet based on lots of vegetables and legumes and good fat. Avoid processed food and processed carbohydrates. Prepare your own meals. Read labels and avoid high fructose corn syrup, processed chemicals added to increase shelf life and preprepared meals. Avoid fast foods. Eat slowly and plan meals for a week. Try to count calories and be mindful of daily calorie intake. Get into the habit of keeping an eye on your weight by using an appropriate scale. Learn to log exercise and discussed fitness Apps like [employer]Parrot/[employer]GR[employer] which can help keep log off calories taken versus calories burned. Local food should be preferred. Discussed Dirty Dozen Versus Clean Fifteen. Discussed healthy supplements like fish oil, Tumeric, Curcumin, Melatonin, Resveratrol, Probiotics, Vitamin-D, Alpha-Lipoic acid, Vitamin-D and coconut oil. 2. It is important to exercise regularly. Is a good habit to walk at least 30 minutes a day. Gentle weightlifting with standard precautions to protect the back. Finding activity like cycling or hiking and get into the habit of engaging in it. Stretching before and after the exercises important. It is also important to contact me if there are any problems like shortness of breath, chest pain, back pain and joint or muscle pain associated with the exercise. 3. Discussed age appropriate screening guidelines. Colonoscopy needs to start at age 50 with stool for occult blood as appropriate. There is a new test that can test for genetic abnormalities in the stool sample, Cologuard. This would not replace a colonoscopy but could be used as a screening tool for patients who do not want a colonoscopy. We discussed the importance of early detection of colon cancer. 4. Discussed current PSA screening. PSA screening can be done in most patients between age 50 and 65. However early detection of prostate cancer needs to carefully be balanced with complications with treatment. These include incontinence, impotence etc. Each patient should decide if they would like to have this test. 5. Discussed safe driving and no use of smart phone while driving 6. Age-appropriate immunizations were discussed. A tetanus booster is needed every 10 years. Flu vaccine is recommended every year just before the start of the flu season. Shingles vaccine is recommended after age 50 but not all insurances cover it. Pneumonia vaccine is given after age 65 unless there are certain comorbidities for which it is started earlier. 7. Diagnostic labs were discussed. These could include/not limited to CBC CMP and lipids with fasting blood glucose and insulin levels. Vitamin D and hemoglobin A1c testing might be appropriate. All quetsions answered to patients satisfaction. Patient verbalized understanding of diagnosis and treatments explained. To call sooner prior to next visit it any questions/concerns arise. Case discussed with collaborating physician Zackary Banks who reviewed the assessment and plan. Chart, medications, labs, vital signs reviewed. Dictation was accomplished with the use of [employer] voice recognition software, prone to medical misidentifications and grammatical errors. This is unintentional and the practitioner does try to identify and correct these, but some could still be present. Please do not hesitate to contact practitioner for clarification. 01/03/2025 Depression screening (ICD-10 - Z13.31) Juan Is a pleasant 64-year-old male who presents the office for complete physical exam. # Patient up-to-date on all routine screening and vaccines, due for pneumonia for which she will obtain at the local pharmacy. Healthcare proxy is his Shy, PHQ-9 01/03/2025 with a total score of 0. # Will refer to dermatology for routine skin check #DMII: Patient taking Januvia 100 mg once daily, metformin at 1000 mg twice daily, Jardiance 25 mg once daily. A1c 04/26/2024 was 6.3. A1c 12/2024 increased to 7.2 with a fasting glucose of 146. Patient does not wish to change medications. Plan is to have patient continue lifestyle changes, patient is aware of risks of prolonged elevated glucose. Patient educated to call if he feels as though lifestyle changes are not working and would like to change medication.Follows with ophthalmology for routine eye checks. Negative diabetic foot check, I did recommend initiation of GLP-1, but patient declines.Patient also declines insulin.States that he has been doing very poorly with his lifestyle wants to focus on this first.States that he checks his sugars at home anywhere between 90 and 140 depending on what he eats. #HLD: Patient taking Atorvastatin Calcium 40 mg Tablet qd. Patient had significant decrease to Tc: 79, LDL:16. Plan for patient to cut down to atorvastatin calcium 20 mg tablet qd #HTN: Controlled today's visit. Minimally elevated to 144 systolic. Patient advised to continue Lisinopril-hydroCHLO ROthiazide 20-12.5 MG Tablet qd.Monitor blood pressures at home and log to review at next visit, call if elevated greater than 140/90. #BPH: Patient advised to continue Terazosin HCl 5 mg Capsule qhs and Oxybutynin Chloride ER 10 mg qd. Follows with urology. Encouraged to continue following with urology. 1+ ketones, 3+ glucose in urine. Patient also has a history of kidney stones. #Hypothyroidism: Taking levothyroxine 100 mcg, TSH elevated at 5.7 12/2024, Plan to repeat TSH and draw T4, T3, and review at next visit. # Elevated liver enzymes. AST 43, ALT 52. As of December 2024, these have resolved # Bilirubin 1.7, December 2024 increased to 1.9. Educated on the importance of hydration. Continued with glucose and trace ketones. Potentially start of chronic kidney disease although GFR Without concern. BUN/creatinine evaded at 29. Also could be related to type 2 diabetes.Discussed conservative treatment. Order direct and indirect bilirubin. #Left knee pain: Patient states he is waiting for orthopedic appointment for knee workup. Patient states he had a meniscetomy, in February 2024. PE is unremarkable, some scabs over patella to mid tibial shaft. Patient educated to continue alleve until orthopedic appointment. Plan to follow up in 3 months to review labs. Patient seen and examined. Comprehensive discussion was done on the following. 1. Nutrition: It is important to follow a healthy diet based on lots of vegetables and legumes and good fat. Avoid processed food and processed carbohydrates. Prepare your own meals. Read labels and avoid high fructose corn syrup, processed chemicals added to increase shelf life and preprepared meals. Avoid fast foods. Eat slowly and plan meals for a week. Try to count calories and be mindful of daily calorie intake. Get into the habit of keeping an eye on your weight by using an appropriate scale. Learn to log exercise and discussed fitness Apps like [employer] which can help keep log off calories taken versus calories burned. Local food should be preferred. Discussed Dirty Dozen Versus Clean Fifteen. Discussed healthy supplements like fish oil, Tumeric, Curcumin, Melatonin, Resveratrol, Probiotics, Vitamin-D, Alpha-Lipoic acid, Vitamin-D and coconut oil. 2. It is important to exercise regularly. Is a good habit to walk at least 30 minutes a day. Gentle weightlifting with standard precautions to protect the back. Finding activity like cycling or hiking and get into the habit of engaging in it. Stretching before and after the exercises important. It is also important to contact me if there are any problems like shortness of breath, chest pain, back pain and joint or muscle pain associated with the exercise. 3. Discussed age appropriate screening guidelines. Colonoscopy needs to start at age 50 with stool for occult blood as appropriate. There is a new test that can test for genetic abnormalities in the stool sample, Cologuard. This would not replace a colonoscopy but could be used as a screening tool for patients who do not want a colonoscopy. We discussed the importance of early detection of colon cancer. 4. Discussed current PSA screening. PSA screening can be done in most patients between age 50 and 65. However early detection of prostate cancer needs to carefully be balanced with complications with treatment. These include incontinence, impotence etc. Each patient should decide if they would like to have this test. 5. Discussed safe driving and no use of smart phone while driving 6. Age-appropriate immunizations were discussed. A tetanus booster is needed every 10 years. Flu vaccine is recommended every year just before the start of the flu season. Shingles vaccine is recommended after age 50 but not all insurances cover it. Pneumonia vaccine is given after age 65 unless there are certain comorbidities for which it is started earlier. 7. Diagnostic labs were discussed. These could include/not limited to CBC CMP and lipids with fasting blood glucose and insulin levels. Vitamin D and hemoglobin A1c testing might be appropriate. All quetsions answered to patients satisfaction. Patient verbalized understanding of diagnosis and treatments explained. To call sooner prior to next visit it any questions/concerns arise. Case discussed with collaborating physician Zackary Banks who reviewed the assessment and plan. Chart, medications, labs, vital signs reviewed. Dictation was accomplished with the use of [employer] voice recognition software, prone to medical misidentifications and grammatical errors. This is unintentional and the practitioner does try to identify and correct these, but some could still be present. Please do not hesitate to contact practitioner for clarification. PLAN OF TREATMENT Pending Test Test Name Order Date Microalb/Creat Ratio, Randm Ur CBC (COMPLETE BLOOD COUNT) 05/03/2021 COMPREHENSIVE METABOLIC PANEL 05/03/2021 COMPREHENSIVE METABOLIC PANEL 11/14/2021 HEMOGLOBIN A1C 05/03/2021 HEMOGLOBIN A1C 11/14/2021 LIPID PANEL 05/03/2021 MICROALBUMIN, URINE 11/14/2021 T4, FREE 05/03/2021 T4, TOTAL 11/14/2021 TSH 05/03/2021 TSH 11/14/2021 URINALYSIS, COMPLETE 05/03/2021 LIPID PANEL, STANDARD 07/19/2021 LIPID PANEL, STANDARD 06/16/2023 LIPID PANEL, STANDARD 04/26/2024 LIPID PANEL, STANDARD 01/03/2025 COMPREHENSIVE METABOLIC PANEL 04/26/2024 COMPREHENSIVE METABOLIC PANEL 01/03/2025 COMPREHENSIVE METABOLIC PANEL 06/16/2023 COMPREHENSIVE METABOLIC PANEL 07/19/2021 GLUCOSE 11/20/2022 CBC (H/H, RBC, INDICES, WBC, PLT) 2020 CBC (INCLUDES DIFF/PLT) 06/16/2023 CBC (INCLUDES DIFF/PLT) 04/26/2024 URINALYSIS, COMPLETE 06/16/2023 URINALYSIS, COMPLETE 04/26/2024 URINALYSIS, COMPLETE 04/02/2022 URINALYSIS, COMPLETE W/REFLEX TO CULTURE 07/19/2021 HEMOGLOBIN A1c 07/19/2021 HEMOGLOBIN A1c 06/16/2023 HEMOGLOBIN A1c 04/26/2024 INSULIN 01/03/2025 PSA, TOTAL 06/16/2023 T4, FREE 07/19/2021 TSH 07/19/2021 TSH 04/26/2024 Hemoglobin [id number] 01/03/2025 TSH+T4F+T3Free 01/03/2025 BILIRUBIN, TOTAL AND DIRECT 01/03/2025 Next Appt Details Provider Name:GONZALEZ LEWIS, 04/04/2025 08:30:00 AM, [address], [place], [address], Insurance Providers Payer Name Payer Address Payer Phone Subscriber Number Group Number Insured Name Patient Relationship to Insured Coverage Start Date Coverage End Date Medicare Part B J14 [address] [facility] [place] [id number] Juan Mcgill Self - patient is the insured 4 MEDICAL (GENERAL) HISTORY Medical History History ICD Code Ketones in urine Hypothyroidism (acquired) E03.9 Type 2 diabetes mellitus with hyperglyce josseline E11.65 BPH without urinary obstruction N40.0 Hypertension, essential I10 Hyperlipidemia E78.5 Elevated liver enzymes R74.8 Arthritis M19.90 Surgical History Surgery Date(Month/Year) left hip replacement 2016 left knee meniscus and arthritis scrapin g March 2024 Hospitalization History Reason Date(Month/Year) kidney stones 2015
== END 2025-03-11 10:06 | disposition home or self-care (01) ==
LOC: HO.HUSH 09:12
PROVIDERS: PCP Internal Medicine; Visit Provider Urology
DX: E11.9 Type 2 diabetes mellitus without complications (principal); N40.1 Benign prostatic hyperplasia with lower urinary tract symptoms; R35.1 Nocturia; N32.0 Bladder-neck obstruction
CPT/HCPCS: 99214; G2211

== ENCOUNTER → 2025-03-11 09:11 | Outpatient (BNVA) | payer MEDICARE, OTHER, SELFPAY | PROVIDERS: PCP Internal Medicine; Visit Provider Urology | DX: N40.1 Benign prostatic hyperplasia with lower urinary tract symptoms (principal); N32.0 Bladder-neck obstruction; R35.1 Nocturia; E11.9 Type 2 diabetes mellitus without complications | CPT/HCPCS: 51798; 99212 ==